=== PATIENT | female | born 1985 | race African-American/Black ===

== ENCOUNTER 2019-09-28 08:00 | Emergency (ER) | payer OTHER ==
[2019-09-28 08:45] LABS: Urine Blood 3+ (NEG); Urine Glucose NEGATIVE (NEG); Urine Protein 1+ (NEG)
[2019-09-28 08:49] LABS: Absolute Lymphocytes (CBC) 2.3 K/uL (0.7-4.9); Basophils % 0.3 % (0-1.3); Hematocrit 38.5 % (36.0-45.0); Lymphocytes % 23.7 % (15.3-44.8); MPV 8.8 fL (7.6-11.3)
[2019-09-28 09:17] LABS: Urine Bacteria 20-50 /HPF (<20); Urine Culture Reflex Order REFLEXED; Urine RBC TNTC /HPF (NONE SEEN)
[2019-09-28 09:20] LABS: BUN Blood Urea Nitrogen 6 mg/dL (7-18); Bicarbonate 26 mmol/L (21-32); Glucose Level 74 mg/dL (74-106); HCG, Quantitative 60990 mIU/mL (1-3); Potassium 3.2 mmol/L (3.5-5.1); Sodium Level 137 mmol/L (136-145)
--- NOTE | 2019-09-28 09:38 | ER ---
Nurse's Notes [facility] Name: Lissette Trujillo Age: 33 yrs Sex: Female : 1985 Arrival Date: 09/28/2019 Time: 08:02 Bed 5 Private MD: Diagnosis: Threatened ;Urinary tract infection, site not specified Presentation: 09/28 08:13 Presenting complaint: Patient states: 10 weeks , had sex last night and jl7 bleeding after, then bleeding with clots this morning, denies pain, reports nausea. Transition of care: patient was not received from another setting of care. Onset of symptoms was September 27, 2019. Risk Assessment: Do you want to hurt yourself or someone else? Patient reports no desire to harm self or others. Initial Sepsis Screen: Does the patient meet any 2 criteria? No. Patient's initial sepsis screen is negative. Does the patient have a suspected source of infection? No. Patient's initial sepsis screen is negative. Care prior to arrival: None. 08:13 Method Of Arrival: Ambulatory jl7 08:13 Acuity: DEVEN 3 jl7 Triage Assessment: 08:15 General: Appears in no apparent distress. uncomfortable, Behavior is calm, cooperative, jl7 appropriate for age. Pain: Denies pain. Neuro: Level of Consciousness is awake, alert, obeys commands, Oriented to person, place, time, situation. Cardiovascular: Patient's skin is warm and dry. Respiratory: Airway is patent Respiratory effort is even, unlabored, Respiratory pattern is regular, symmetrical. GI: Abdomen is round non-distended, Abd is soft and non tender X 4 quads. Reports nausea. : Reports vaginal bleeding that is bright red, with clots, Denies burning with urination. Derm: Skin is pink, warm \T\ dry. Musculoskeletal: No signs and/or symptoms reported regarding the musculoskeletal system. JD EDWARDS: 08:33 5, Living 4, LMP 07/15/2019, Verified, EDC 04/20/2020, Gestational age jl7 from LMP: 10 weeks 5 days Historical: - Allergies: 08:15 Bactrim; jl7 - Home Meds: 08:15 prenantal [Active]; jl7 - PMHx: 08:15 None; jl7 - PSHx: 08:15 None; jl7 - Immunization history:: Adult Immunizations unknown. - Social history:: Smoking status: Patient/guardian denies using tobacco. - Family history:: not pertinent. - Ebola Screening: : No symptoms or risks identified at this time. - Hospitalizations: : No recent hospitalization is reported. Screenin:31 Abuse screen: Denies threats or abuse. Denies injuries from another. Nutritional jl7 screening: No deficits noted. Tuberculosis screening: No symptoms or risk factors identified. Fall Risk IV access (20 points). Total Leroy Fall Scale indicates No Risk (0-24 pts). Assessment: 08:33 Obstetrical Assessment: Patient reports nausea, bright red bleeding with clots post jl7 intercourse . General: See triage assessment. 09:25 Reassessment: Dr. Frazier at bedside discussing results and plan of care. jl7 Vital Signs: 08:15 BP 121 / 78; Pulse 78; Resp 16 S; Pulse Ox 98% on R/A; jl7 Vitals: 09:46 Heart Tones N/A. jl7 ED Course: 08:02 Patient arrived in ED. as 08:06 Kay Bustillo, RN is Primary Nurse. iw 08:07 Frank Frazier MD is Attending Physician. rn 08:13 Jane Coles, DEZ is Primary Nurse. jl7 08:14 Triage completed. jl7 08:15 Arm band placed on right wrist. jl7 08:31 Patient has correct armband on for positive identification. Placed in gown. Bed in low jl7 position. Call light in reach. Side rails up X 1. Pulse ox on. NIBP on. Warm blanket given. 08:31 Initial lab(s) drawn, by me, sent to lab. Urine collected: clean catch specimen, jl7 cloudy, tea colored. Inserted saline lock: 20 gauge in right antecubital area, using aseptic technique. Blood collected. 08:54 Patient taken to ultrasound. via wheelchair. lc3 08:54 Ultrasound completed. Patient tolerated well. Patient moved back from ultrasound. lc3 09:19 US Transvaginal Ob In Process Unspecified. EDMS 09:45 No provider procedures requiring assistance completed. IV discontinued, intact, jl7 bleeding controlled, No redness/swelling at site. Pressure dressing applied. Administered Medications: No medications were administered Point of Care Testing: Urine : 08:33 hCG Reading: Positive; Control Reading: Positive; jl7 Outcome: 09:38 Discharge ordered by . rn 09:45 Discharged to home ambulatory. jl7 09:45 Condition: stable 09:45 Discharge instructions given to patient, family, Instructed on discharge instructions, follow up and referral plans. medication usage, Demonstrated understanding of instructions, follow-up care, medications, Prescriptions given X 1. 09:47 Patient left the ED. jl7 Signatures: Dispatcher [employer] Marybeth Hudson Irene, Frank Ordoñez RN, MD MD rn Cunningham, Laulita lc3 Leal, Jahala, RN RN jl7
--- NOTE | 2019-09-28 09:39 | EDPHYS ---
Physician Documentation [facility] Name: Lissette Trujillo Age: 33 yrs Sex: Female : 1985 Arrival Date: 09/28/2019 Time: 08:02 Bed 5 Private MD: ED Physician Frank Frazier HPI: 09/28 08:12 This 33 yrs old Black Female presents to ER via Unassigned with complaints of Vaginal rn Bleeding, + Preg <12wks. 08:12 The patient presents to the emergency department with vaginal bleeding, that is rn moderate, with clots. The estimated gestational age is 10 weeks. course: care: none, Leakage of Fluid: none appreciated, Ultrasound: the patient has not had an ultrasound. Previous pregnancies: in previous pregnancies patient has had. The patient has not experienced similar symptoms in the past. The patient has not recently seen a physician. presents at approx 10 weeks gestation by LMP, no U/S, with vaginal bleeding, moderate, with some clots, had sex last night and noticed bleeding, stopped, then started again. No abd pain or cramping. No other trauma. No bleeding problems in past. No other complications with previous pregnancies.. [employer]ER: 08:33 5, Living 4, LMP 07/15/2019, Verified, EDC 04/20/2020, Gestational age jl7 from LMP: 10 weeks 5 days Historical: - Allergies: 08:15 Bactrim; jl7 - Home Meds: 08:15 prenantal [Active]; jl7 - PMHx: 08:15 None; jl7 - PSHx: 08:15 None; jl7 - Immunization history:: Adult Immunizations unknown. - Social history:: Smoking status: Patient/guardian denies using tobacco. - Family history:: not pertinent. - Ebola Screening: : No symptoms or risks identified at this time. - Hospitalizations: : No recent hospitalization is reported. ROS: 08:12 Constitutional: Negative for fever, chills, and weight loss, Eyes: Negative for injury, rn pain, redness, and discharge, Neck: Negative for injury, pain, and swelling, Cardiovascular: Negative for chest pain, palpitations, and edema, Respiratory: Negative for shortness of breath, cough, wheezing, and pleuritic chest pain, Abdomen/GI: Negative for abdominal pain, nausea, vomiting, diarrhea, and constipation, Back: Negative for injury and pain, : + vaginal bleeding MS/Extremity: Negative for injury and deformity, Neuro: Negative for headache, weakness, numbness, tingling, and seizure. Exam: 08:12 Constitutional: This is a well developed, well nourished patient who is awake, alert, rn and in no acute distress. Ambulatory to room without difficulty or assistance. Head/Face: Normocephalic, atraumatic. Cardiovascular: Regular rate and rhythm. No pulse deficits. Respiratory: No increased work of breathing, no retractions or nasal flaring. Abdomen/GI: soft, non-tender Skin: Warm, dry with normal turgor. Normal color with no rashes, no lesions, and no evidence of cellulitis. MS/ Extremity: Pulses equal, no cyanosis. Neurovascular intact. Full, normal range of motion. Equal circumference. Neuro: Awake and alert, GCS 15, oriented to person, place, time, and situation. Cranial nerves II-XII grossly intact. Motor strength 5/5 in all extremities. Sensory grossly intact. Cerebellar exam normal. Normal gait. Vital Signs: 08:15 BP 121 / 78; Pulse 78; Resp 16 S; Pulse Ox 98% on R/A; jl7 MDM: 08:07 Patient medically screened. rn 09:34 Differential diagnosis: ectopic , UTI. Data reviewed: vital signs, nurses rn notes, lab test result(s), radiologic studies, ultrasound, and as a result, I will discharge patient. Counseling: I had a detailed discussion with the patient and/or guardian regarding: the historical points, exam findings, and any diagnostic results supporting the discharge/admit diagnosis, lab results, radiology results, the need for outpatient follow up, to return to the emergency department if symptoms worsen or persist or if there are any questions or concerns that arise at home. Special discussion: I discussed with the patient/guardian in detail that at this point there is no indication for admission to the hospital. It is understood, however, that if the symptoms persist or worsen the patient needs to return immediately for re-evaluation. Based on the history and exam findings, there is no indication for further emergent testing or inpatient evaluation. I discussed with the patient/guardian the need to see the OB Gyne specialist for further evaluation of the symptoms. ED course: Rh+, + bacteriuria, + 2 small subchorionic bleeds, recommend pelvic rest, and OB f/u for repeat U/S. . 09:34 ED course: Has OB appt tomorrow. . rn 09/28 08:11 Order name: Quantitative Hcg; Complete Time: 09:26 rn 09/28 08:11 Order name: Abo/rh Typing; Complete Time: 09:26 rn 09/28 08:11 Order name: Basic Metabolic Panel; Complete Time: 09: rn 09/28 08:11 Order name: CBC with Diff; Complete Time: 09: rn 09/28 08:12 Order name: Urine Microscopic Only; Complete Time: 09:26 rn 09/28 08:40 Order name: Urine Dipstick--Ancillary (enter results) ms 09/28 08:08 Order name: US Transvaginal Ob rn 09/28 08:11 Order name: Urine Test (obtain specimen); Complete Time: 08:35 rn 09/28 08:11 Order name: IV Saline Lock; Complete Time: 08:35 rn 09/28 08:11 Order name: Labs collected and sent; Complete Time: 08:35 rn 09/28 08:11 Order name: NPO; Complete Time: 08:35 rn 09/28 08:56 Order name: Urine --Ancillary (enter results) ms 09/28 09:19 Order name: Urine Culture EDAL 09/28 08:11 Order name: Urine Dipstick-Ancillary (obtain specimen); Complete Time: 08:35 rn Administered Medications: No medications were administered Point of Care Testing: Urine : 08:33 hCG Reading: Positive; Control Reading: Positive; jl7 Disposition: 09/28/19 09:38 Discharged to Home. Impression: Threatened , Urinary tract infection, site not specified. - Condition is Stable. - Discharge Instructions: Threatened Miscarriage, Urinary Tract Infection, Adult, Vaginal Bleeding During , First Trimester, Pelvic Rest. - Prescriptions for Macrobid 100 mg Oral Capsule - take 1 capsule by ORAL route every 12 hours for 7 days; 14 capsule. - Work release form, Medication Reconciliation Form, Thank You Letter, Antibiotic Education, Prescription Opioid Use form. - Follow up: Private Physician; When: Tomorrow; Reason: Recheck today's complaints, Re-evaluation by your physician. - Problem is new. - Symptoms have improved. Signatures: Dispatcher [employer] [facility] Frank Frazier MD MD rn Leal, Jahala, RN RN jl7 Corrections: (The following items were deleted from the chart) 08:45 08:40 URINE --ANCILLARY+UC.LAB.BRZ ordered. [facility] 09:47 09:38 09/28/2019 09:38 Discharged to Home. Impression: Threatened ; Urinary jl7 tract infection, site not specified. Condition is Stable. Forms are Work release form, Medication Reconciliation Form, Thank You Letter, Antibiotic Education, Prescription Opioid Use. Follow up: Private Physician; When: Tomorrow; Reason: Recheck today's complaints, Re-evaluation by your physician. Problem is new. Symptoms have improved. rn
[2019-09-28 09:59] VITALS: BP 121/78; O2SAT 98
--- NOTE | 2019-09-28 12:57 | RAD REPORT ---
EXAM DESCRIPTION: US - Transvaginal OB - 09/28/2019 9:18 am CLINICAL HISTORY: vaginal bleeding;Abd cramping, COMPARISON: OBSTETRICAL COMPLETE dated 08/10/2009 FINDINGS: A single gestational sac is seen within the uterus. The shape of the sac is within normal limits for gestational age. Within the sac is a single pole with crown-rump length of 4.8 cm, c orrelating to estimated gestational age of 11 weeks 3 days. Estimated date of delivery is 04/15/2020. Heart rate is 150 BPM. 24 x 8 mm inferiorly located subchorionic bleed. Placenta appears to be developing anteriorly. The maternal adnexa and right ovary are within normal limits. Left ovary is obscured by bowel gas. No rmal Doppler blood flow was demonstrated to the right ovary. IMPRESSION: Single live early intrauterine gestation with estimated gestational age of 11 weeks 3 da ys, SPENCER 04/15/2020. 24 x 8 mm inferiorly located subchorionic bleed.
== END 2019-09-28 09:47 | disposition home or self-care (01) ==
LOC: ER 08:00
DX: O20.0 Threatened abortion (principal); Z3A.10 10 weeks gestation of pregnancy; O23.41 Unspecified infection of urinary tract in pregnancy, first trimester; Z88.1 Allergy status to other antibiotic agents
CPT/HCPCS: 36415; 76817; 80048; 81003; 81015; 81025; 84702; 85025; 86900; 86901; 87086; 87088; 99284

== ENCOUNTER 2023-05-23 14:17 | Emergency (ER) | payer OTHER ==
--- OUTSIDE RECORDS SUMMARY | 2023-05-23 14:21 | XMS REPORT | Continuity of Care Document ---
:1985 Author Organization [facility] t Address [address] [place] [address] Care Team Providers Name Role Phone Farzana Villa Attending Clinician Unavailable Farzana Villa Admitting Clinician Unavailable Payers Payer Name Policy Type Policy Number Effective Date Expiration Date S ource Problems This patient has no known problems. Allergies, Adverse Reactions, Alerts Allergy Allergy Status Severity Reaction(s) Onset Inactive Treating Comm ents Source Name Type Date Date Clinician sulfamet DA Active U [facility]ox[facility] 04-22 [facility] [place] trimetho DA Active U [facility] prim 04-22 [facility] [place] sulfamet DA Active U 2006-11 [facility] hoxazole 12-04 [facility] [place] trimetho DA Active U 2006-11 [facility] prim 12-04 [facility] [place] BACTRIM DA Active U 2006-11 [facility] 12-03 [facility] [place] No Known DA Active U 2006-11 [facility] Contrast - [facility] [place] No Known DA Active U 2006-11 [facility] Food 12-03 [facility] [place] No Known DA Active U 2006-11 [facility] Other 12-03 [facility] [place] Medications This patient has no known medications. Procedures Procedure Date / Time Performed Performing [id number] 2020-04-23 00:00:00 DAVLE [facility] Encounters Start End Encounter Admission Attending Care Care Encounter Source Date/Time Date/Time Type Type Clinicians Facility Department ID 2020-04-23 Inpatient RELL Aviles LD [id number] [facility] 08:52:00 Farzana [facility] 2020-04-22 Inpatient RELL Villa BELKIS [id number] [facility] 20:14:00 [place] 67 [facility] Results Test Description Test Time Test Comments Results Result Comments Source HGB HCT 2020-04-24 07:55:00 Test Item Value Reference Range Interpretation Comme nts HEMOGLOBIN (test code = HGB) 9.5 g/dL 10.7-13.9 L HEMATOCRIT (test code = HCT) 31.4 % 32.1-42.1 L AG HEPATITIS B [id number] 22:49:00 Test Item Value Reference Range Interpretation Comments AG HEPATITIS B SURFACE (test code NONREACTIVE NONREACTIVE = HBSAG) AB HEPATITIS C [id number] 22:49:00 Test Item Value Reference Range Interpretation Comments AB HEPATITIS C (test code = NONREACTIVE NONREACTIVE HCVAB) SIGNAL TO CUTOFF (test code = 0.24 <0.80 N CUTOFF) AB [id number] 22:49:00 Test Item Value Reference Range Interpretation Comments AB TREPONEMA (test code = TREPAB) NONREACTIVE NONREACTIVE AG HEPATITIS B [id number] 22:28:00 Test Item Value Reference Range Interpretation Comments AG HEPATITIS B SURFACE (test code NONREACTIVE NONREACTIVE = HBSAG) AB HEPATITIS C [id number] 22:28:00 Test Item Value Reference Range Interpretation Comments AB HEPATITIS C (test code = HCVAB) NONREACTIVE SIGNAL TO CUTOFF (test code = CUTOFF) <0.80 AB [id number] 22:28:00 Test Item Value Reference Range Interpretation Comments AB TREPONEMA (test code = TREPAB) NONREACTIVE NONREACTIVE Coronavirus 2019 nCoV [id number] 22:22:00 Test Item Value Reference Range Interpretation Comments Coronavirus 2019 Negative Negative RESULTS CA LLED TO ARACELI nCoV Bedside (test M.READ BA CK & CONFIRMED? code = YBY F.LAB.IR 2 COVNONPUIBED) This result do es not rule out co-infectio ns with otherpathogens. * False negative result s may occur if a specimen i simproperly collected, sims sported or handled. False negativeresults may also occur if amplif ication inhibitors arep resent in the specimen or if inadequate leve ls of virusesare pres ent in the specimen. Negat roxy results should beconsid ered in the context of a pa tient's recent exposure s,history and the presenc e of clinical signs and symptomsconsist ent with COVID-19. * Neg ative results should be treated as presumptive andtested with an alterna tive FDA authorized mole cular assayif necessa ry for clinical managm ent, including infectioncontro l. * As with any molecu lar test,mutations within the target regions Kebede ID NOW COVID-[address] could affect primeran d/or probe binding resulti ng in failure to dete ct therescence of the virus.TEST PERF ORMED UNDER AN EMERGENCY US E AUTHORIZATION F ROM [facility] CBC W/AUTO [id number] 21:44:00 Test Item Value Reference Range Interpretation Comments WHITE BLOOD CELL (test code = WBC) 12.2 K/mm3 6.6-12.1 H RED BLOOD CELL (test code = RBC) 4.00 M/mm3 3.45-5.01 N HEMOGLOBIN (test code = HGB) 10.6 g/dL 10.7-13.9 L HEMATOCRIT (test code = HCT) 33.2 % 32.1-42.1 N MEAN CELL VOLUME (test code = MCV) 83 fL 84.1-94.8 L MEAN CELL HGB (test code = MCH) 26.5 pg 27-35 L MEAN CELL HGB CONCETRATION (test 31.9 gm/dL 32.2-34.1 L code = MCHC) RED CELL DISTRIBUTION WIDTH (test 17.2 % 12.4-16.5 H code = RDW) PLATELET COUNT (test code = PLT) 290 K/mm3 133-385 N MEAN PLATELET VOLUME (test code = 11.1 fl 9.1-12.7 N MPV) NEUTROPHIL % (test code = NT%) 82.7 % 56.5-79.4 H LYMPHOCYTE % (test code = LY%) 10.4 % 14.3-34.3 L MONOCYTE % (test code = MO%) 6.3 % 5.1-10.4 N EOSINOPHIL % (test code = EO%) 0.2 % 0.1-3.0 N BASOPHIL % (test code = BA%) 0.1 % 0.1-1.0 N NEUTROPHIL # (test code = NT#) 10.1 K/mm3 LYMPHOCYTE # (test code = LY#) 1.3 K/mm3 MONOCYTE # (test code = MO#) 0.8 K/mm3 EOSINOPHIL # (test code = EO#) 0.02 K/mm3 BASOPHIL # (test code = BA#) 0.0 K/mm3 RBC MORPHOLOGY REQUIRED (test code NORMAL NORMAL = RBCM) PLATELET MORPHOLOGY REQUIRED (test NORMAL NORMAL code = PLTMR) Notes Date/Time Note Provider Source 2020-04-23 14:34:00-00:00 [facility] OB Postpart Progr Note REPORT#:[id number] REPORT STATUS: Signed DATE:04/23/20 TIME: 1434 PATIENT: DANAY KING UNIT #: [id number] ROOM/BED: [address] : [birth year] AGE: 34 SEX: F ATTEND: Karen Villa MD ADM AUTHOR: Farzana Villa MD * ALL edits or amendments must be made on the el ectronic/computer document * Subjective Subjective EGA weeks/days: 40 weeks Status/Day: post Objective Nursing Documentation Review Nursing Data: The data set between the solid lines has been im ported from nursing documentation. Any exceptions have been noted be low under Provider comments. Feeding preference: Provider comments on imported nursing data: [] DAY #1/2 SUBJECTIVE: No complaints. S cant lochia. Tolerating a regular diet. Ambulatory. Voiding spontaneously. Nursing. OBJECTIVE: Vital signs stable. Afebrile Vital Signs: Date Time Temp Pulse Resp B/P B/P Pulse O2 O2 F low FiO2 Mean Ox Delivery Rate 04/23 0743 98.6 71 20 125/77 04/23 0418 98.9 74 18 126/64 04/23 0334 83.0 04/23 0334 75 117/58 04/23 0304 83.0 04/23 0304 79 115/65 04/23 0249 78.0 04/23 0249 71 114/55 Fundus is firm, low and nontender. Perineum/suture sites are healing well and inta ct. ASSESSMENT: Recovering well after . PLAN: Continue care per orders. Planning for discharge home tomorrow. Diagnosis, Assessment Plan Diagnosis, Assessment Plan Problem List/A P: 1. Delivery outcome of single liveborn 2. Term delivered Free text A P: s/p NVD - recovering well Assessment: nml progress Plan: routine care, discharge tomorro w Plan discussed with: patient, nurse Electronically Signed by Farzana Villa MD 04/23/20 at 1435 RPT #:[id number] END OF REPORT 2020-04-23 00:01:00-00:00 [facility] OB Delivery Note REPORT#:[id number] REPORT STATUS: Signed DATE:04/23/20 TIME: 0001 PATIENT: DANAY KING UNIT #: [id number] ROOM/BED: [address] : [birth year] AGE: 34 SEX: F ATTEND: Karen Villa MD ADM AUTHOR: Kenzie Rubio MD * ALL edits or amendments must be made on the [employer] document * OB Delivery Pre-delivery evaluation at delivery: NRP certified la nena cowan Admission EGA (wks/days): 39 weeks EGA at delivery (wks/days): 40 weeks Baby A Information Baby A information Delivery date: 04/23/20 status: live born Wt of baby: not yet available Gender: female 1 minute: 8 5 minutes: 9 Presentation: vertex Vaginal Delivery Vaginal delivery: Labor: augmented Medications/Devices used: oxytocin Vaginal delivery: spontaneous Amniotic fluid: clear Anesthesia type: epidural anesthesia Blood Loss/Details Blood loss at delivery: no more than expected Electronically Signed by Kenzie Rubio MD on at 0138 RPT #:[id number] END OF REPORT 2020-04-22 23:59:00-00:00 [facility] ([facility]) OB Admission / H P REPORT#:[id number] REPORT STATUS: Signed DATE:04/22/20 TIME: 2358 PATIENT: DANAY KING UNIT #: [id number] ROOM/BED: [address] : [birth year] AGE: 34 SEX: F ATTEND: Karen Villa MD ADM AUTHOR: Kenzie Rubio MD * ALL edits or amendments must be made on the [employer] document * OB Admission H P Hx Chief complaint: uterine contractions HPI: @ 39.6 wk with ctx history: : 5 Term: 4 Living children: 4 Current : EDC: 04/23/20 Admission EGA (wks/days): 39 weeks EGA based on: LMP Labs: Blood type: B Rh: positive Rubella: immune Hepatitis B: negative HIV: negative STD: negative Syphilis: currently negative GBS: negative Past medical history: denies PMH Past surgical history: denies PSH Social history: no alcohol use, no tobacco use, no drug use Allergies Coded Allergies: sulfamethoxazole (RASH-UNKNOWN 04/22/20) DRUG INGREDIENT Stefan SULFAMETHOXAZOLE trimethoprim (RASH-UNKNOWN 04/22/20) DRUG INGREDIENT Stefan TRIMETHOPRIM Uncoded Allergies: BACTRIM (05/15/09) Review of Systems All systems rev neg: except as marked Objective General VS: Last Documented: Result Date Time B/P Mean 84.0 04/22 2250 B/P 120/59 04/22 225 Pulse 80 04/22 2250 Temp 98.8 04/22 2031 Resp 17 04/22 2031 Vital Signs Date Temp Pulse Resp B/P B/P Mean Pulse Ox FiO2 04/22 98.8 79-100 17 99-129/59-72 71.0-93.0 Patient Weight Weight (lb): Weight (oz): Weight (kg): [id number] Physical Exam HEENT: normocephalic w/o injury, pupils equal Cardiac: regular rate and rhythm, no clinically sig murmur Lungs: clear to auscultation, no rales, no rhonc hi Abdomen: gravid, no abnormal tenderness, no guar ding Uterine activity: Monitor: toco Pelvic exam: Pelvis clinically adequate: yes, inlet appears appropriate, pubic bone config appropr, no midpelvic contraction Cervical/ exam: Dilatation (cm): 5 Effacement (%): 80 Est wt (gms): 3300 station: - 2 presentation: cephalic Membranes: Membranes: Intact Baby A: Baby A baseline: 140 bpm Baby A variability: moderate 6-25 bpm Baby A accelerations: 15 X 15 Baby A decelerations: none Baby A FHR category: category 1 Diagnosis, Assessment Plan Diagnosis, Assessment Plan Assessment/Impression: spont.active labor>39 wks Plan: admit to inpatient, delivery Electronically Signed by Kenzie Rubio MD on at 0140 RPT #:[id number] END OF REPORT 2020-04-22 23:19:00-00:00 [facility]) Clinical Note REPORT#:[id number] REPORT STATUS: Signed DATE:04/22/20 TIME: 2318 PATIENT: DANAY KING UNIT #: [id number] ROOM/BED: [address] : [birth year] AGE: 34 SEX: F ATTEND: Karen Villa MD ADM AUTHOR: Carie Grullon MD * ALL edits or amendments must be made on the el ectronic/computer document * Clinical Note Note: Called by RN to AROM FHR cat egory 1. VE: AROMed no fluid. FHR category 1 at 2323 RPT #:[id number] END OF REPORT
[2023-05-23 14:43] LABS: Absolute Lymphocytes (CBC) 2.3 K/uL (0.7-4.9); Hematocrit 41.6 % (36.0-45.0); Lymphocytes % 24.8 % (15.3-44.8); MCV 92.4 fL (80-100); MPV 8.3 fL (7.6-11.3)
[2023-05-23 14:46] LABS: Specific Gravity 1.007 (1.005-1.030)
[2023-05-23 14:48] LABS: Specific Gravity 1.007 (1.005-1.030); Urine Bacteria <20 /HPF (<20); Urine Bilirubin NEGATIVE (Negative); Urine Blood Negative (Negative); Urine Clarity Turbid (Clear); Urine Color Colorless (Yellow); Urine Crystals Unidentified Few /HPF (None Seen); Urine Glucose NEGATIVE (Negative); Urine Protein NEGATIVE (Negative); Urine RBC <5 /HPF (None Seen); Urine Urobilinogen Normal (Normal)
[2023-05-23 14:57] LABS: Albumin 3.5 g/dL (3.4-5.0); Bilirubin Total 0.5 mg/dL (0.2-1.0); Potassium 3.7 mEq/L (3.5-5.1); Protein, Total 8.4 g/dL (6.4-8.2)
--- NOTE | 2023-05-23 15:31 | EDPHYS ---
Physician Documentation [facility] Name: Lissette Trujillo Age: 37 yrs Sex: Female : 1985 Arrival Date: 05/23/2023 Time: 14:17 Bed 19 Private MD: ED Physician Arturo Camara HPI: 05/23 15:39 This 37 yrs old Black Female presents to ER via Ambulatory with complaints of Abdominal kb Pain. 15:39 The patient presents with abdominal pain. Onset: The symptoms/episode began/occurred kb last night. The symptoms do not radiate. Associated signs and symptoms: none. The symptoms are described as constant. Modifying factors: The symptoms are alleviated by nothing, the symptoms are aggravated by nothing. Severity of pain: At its worst the pain was moderate in the emergency department the pain has resolved 30 minute(s) prior to arrival. The patient has not experienced similar symptoms in the past. The patient has not recently seen a physician. Historical: - Allergies: 14:24 Bactrim; ld1 - PMHx: 14:24 None; ld1 - PSHx: 14:24 None; ld1 - Immunization history:: Adult Immunizations up to date, Client reports receiving the 2nd dose of the Covid vaccine. - Social history:: Smoking status: Patient denies any tobacco usage or history of. Patient/guardian denies using alcohol. ROS: 15:38 Constitutional: Negative for fever, chills, and weight loss. kb 15:38 All other systems are negative. Exam: 15:38 Constitutional: This is a well developed, well nourished patient who is awake, alert, kb and in no acute distress. Head/Face: Normocephalic, atraumatic. ENT: Moist Mucous membranes Cardiovascular: Regular rate and rhythm with a normal S1 and S2. No gallops, murmurs, or rubs. No pulse deficits. Respiratory: Respirations even and unlabored. No increased work of breathing. Talking in full sentences Abdomen/GI: Soft, non-tender. No distention Skin: Warm, dry with normal turgor. Normal color. MS/ Extremity: Pulses equal, no cyanosis. Neurovascular intact. Full, normal range of motion. Neuro: Awake and alert, GCS 15, oriented to person, place, time, and situation. Moves all extremities. Normal gait. Vital Signs: 14:23 BP 128 / 79; Pulse 75; Resp 18; Temp 98.5(O); Pulse Ox 99% on R/A; Weight 58.97 kg; ld1 Height 5 ft. 5 in. ; Pain 0/10; 15:34 BP 131 / 78; Pulse 81; Resp 18; Pulse Ox 100% on R/A; mb9 14:23 Body Mass Index 21.63 (58.97 kg, 165.1 cm) ld1 14:23 Pain Scale: Adult ld1 MDM: 14:20 Patient medically screened. kb 15:38 Differential diagnosis: appendicitis, cholecystitis, Cholelithiasis, non-specific abd kb pain. Data reviewed: vital signs, nurses notes. 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 Counseling: I had a detailed discussion with the patient and/or guardian regarding: the historical points, exam findings, and any diagnostic results supporting the discharge/admit diagnosis, lab results, the need for outpatient follow up, a family practitioner, to return to the emergency department if symptoms worsen or persist or if there are any questions or concerns that arise at home. Special discussion: Based on the patient's Hx, exam, and Dx evaluation, there is no indication for emergent surgery or inpatient Tx. It is understood by the patient/guardian that if the Sx's persist or worsen they need to return immediately for re-evaluation. 05/23 14:23 Order name: CBC with Diff; Complete Time: 15:13 kb 05/23 14:23 Order name: CMP; Complete Time: 14:57 kb 05/23 14:23 Order name: Lipase; Complete Time: 14:57 kb 05/23 14:23 Order name: Test, Urine; Complete Time: 14:51 kb 05/23 14:23 Order name: Urinalysis w/ reflexes; Complete Time: 14:51 kb 05/23 14:23 Order name: IV Saline Lock; Complete Time: 14:32 kb 05/23 14:23 Order name: Labs collected and sent; Complete Time: 14:32 kb Administered Medications: No medications were administered Disposition: 17:26 Co-signature as Attending Physician, Arturo Camara MD I reviewed the patient's care rt provided by the Advanced Practice Provider and agree with the diagnosis and treatment plan. Disposition Summary: 05/23/23 15:31 Discharge Ordered Location: Home kb Condition: Stable kb Diagnosis - Abdominal pain, Generalized kb Followup: kb - With: Emergency Department - When: As needed - Reason: Worsening of condition Followup: kb - With: Private Physician - When: 2 - 3 days - Reason: Recheck today's complaints, Continuance of care, Re-evaluation by your physician Discharge Instructions: - Discharge Summary Sheet kb - Abdominal Pain, Adult, [id number]-[id number] kb Forms: - Medication Reconciliation Form kb - Thank You Letter kb - Antibiotic Education kb - Prescription Opioid Use kb - [email or web address] kb Signatures: Dispatcher [employer] EDPoppy Bullock FNP-C FNP-Ckb Sims, Lauren, RN RN ld1 Arturo Camara MD MD rt
--- NOTE | 2023-05-23 15:31 | ER ---
Nurse's Notes [facility] Name: Lissette Trujillo Age: 37 yrs Sex: Female : 1985 Arrival Date: 05/23/2023 Time: 14:17 Bed 19 Private MD: Diagnosis: Abdominal pain, Generalized Presentation: 05/23 14:23 Chief complaint: Patient states: Mid abdominal pain since last night. Denies N/V/D. ld1 Coronavirus screen: At this time, the client does not indicate any symptoms associated with coronavirus-19. Ebola Screen: No symptoms or risks identified at this time. Initial Sepsis Screen: Does the patient meet any 2 criteria? No. Patient's initial sepsis screen is negative. Does the patient have a suspected source of infection? No. Patient's initial sepsis screen is negative. Risk Assessment: Do you want to hurt yourself or someone else? Patient reports no desire to harm self or others. Onset of symptoms was May 23, 2023. 14:23 Method Of Arrival: Ambulatory ld1 14:23 Acuity: DEVEN 3 ld1 Triage Assessment: 14:24 General: Appears in no apparent distress. comfortable, Behavior is calm, cooperative, ld1 appropriate for age. Pain: Complains of pain in abdomen Pain does not radiate. Pain currently is 0 out of 10 on a pain scale. at worst was 9 out of 10 on a pain scale. Quality of pain is described as throbbing. EENT: No signs and/or symptoms were reported regarding the EENT system. Neuro: Level of Consciousness is awake, alert, obeys commands, Oriented to person, place, time, situation. Cardiovascular: Capillary refill < 3 seconds Patient's skin is warm and dry. Respiratory: Airway is patent Respiratory effort is even, unlabored. GI: Abdomen is flat, non-distended, Reports lower abdominal pain, upper abdominal pain. : No signs and/or symptoms were reported regarding the genitourinary system. Derm: No signs and/or symptoms reported regarding the dermatologic system. Musculoskeletal: No signs and/or symptoms reported regarding the musculoskeletal system. Historical: - Allergies: 14:24 Bactrim; ld1 - PMHx: 14:24 None; ld1 - PSHx: 14:24 None; ld1 - Immunization history:: Adult Immunizations up to date, Client reports receiving the 2nd dose of the Covid vaccine. - Social history:: Smoking status: Patient denies any tobacco usage or history of. Patient/guardian denies using alcohol. Screenin:34 [facility] ED Fall Risk Assessment (Adult) History of falling in the last 3 months, mb9 including since admission No falls in past 3 months (0 pts). Abuse screen: Denies threats or abuse. Denies injuries from another. Nutritional screening: No deficits noted. Tuberculosis screening: No symptoms or risk factors identified. Assessment: 15:34 Reassessment: No changes from previously documented assessment. Patient and/or family mb9 updated on plan of care and expected duration. Pain level reassessed. Patient is alert, oriented x 3, equal unlabored respirations, skin warm/dry/pink. See triage assessment Patient denies pain at this time. Vital Signs: 14:23 BP 128 / 79; Pulse 75; Resp 18; Temp 98.5(O); Pulse Ox 99% on R/A; Weight 58.97 kg; ld1 Height 5 ft. 5 in. ; Pain 0/10; 15:34 BP 131 / 78; Pulse 81; Resp 18; Pulse Ox 100% on R/A; mb9 14:23 Body Mass Index 21.63 (58.97 kg, 165.1 cm) ld1 14:23 Pain Scale: Adult ld1 ED Course: 14:18 Patient arrived in ED. am2 14:20 [facility] kb 14:20 Arturo Camara MD is Attending Physician. kb 14:24 Triage completed. ld1 14:24 Arm band placed on right wrist. ld1 14:32 Urinalysis w/ reflexes Sent. ld1 14:32 Inserted saline lock: 20 gauge in right antecubital area, using aseptic technique. ld1 Blood collected. 15:08 Placed in gown. Bed in low position. Call light in reach. Side rails up X 1. Client mb9 placed on continuous cardiac and pulse oximetry monitoring. NIBP monitoring applied. 15:34 No provider procedures requiring assistance completed. IV discontinued, intact, mb9 bleeding controlled, No redness/swelling at site. Administered Medications: No medications were administered Medication: 15:08 VIS not applicable for this client. mb9 Outcome: 15:31 Discharge ordered by . kb 15:34 Discharged to home ambulatory. mb9 15:34 Condition: stable 15:34 Discharge instructions given to patient, Instructed on discharge instructions, follow up and referral plans. Demonstrated understanding of instructions, follow-up care. 15:35 Patient left the ED. mb9 Signatures: Poppy Cheng, CLAY PREPARATION SUPERVISOR-C CLAY PREPARATION SUPERVISOR-Ckb Roxana Mack Lauren RN RN ld1 Karis Abraham RN RN mb9
[2023-05-23 16:11] VITALS: TEMP 98.5
[2023-05-23 16:14] VITALS: BP 131/78; O2SAT 100
== END 2023-05-23 15:35 | disposition home or self-care (01) ==
LOC: ER 14:17
DX: R10.84 Generalized abdominal pain (principal); Z88.1 Allergy status to other antibiotic agents
CPT/HCPCS: 36415; 80053; 81001; 81025; 83690; 85025; 99283

== ENCOUNTER 2023-06-25 17:21 | Emergency (ER) | payer OTHER ==
--- OUTSIDE RECORDS SUMMARY | 2023-06-25 17:24 | XMS REPORT | Continuity of Care Document ---
:1985 Author Organization [facility] t Address [address] [place] [address] Care Team Providers Name Role Phone Farzana [...] Known DA Active U 2006-11 [facility] [place] No Known DA Active U 2006-11 [facility] Other 12-03 [facility] [place] Medications This patient has no known medications. Procedures Procedure Date / Time Performed Performing [id number] 2020-04-23 00:00:00 DAVLE [facility] Encounters Start End Encounter Admission Attending Care Care Encounter Source Date/Time Date/Time Type Type Clinicians Facility Department ID 2020-04-23 Inpatient ERLL Aviles LD [id number] [facility] 08:52:00 Farz[facility] 2020-04-22 Inpatient RELL Villa BELKIS [id number] [facility] 20:14:00 [place] 67 [facility] Results Test Description Test Time Test Comments Results Result Comments Source HGB HCT 2020-04-24 07:55:00 Test Item Value Reference Range Interpretation Comme nts HEMOGLOBIN (test code = HGB) 9.5 g/dL 10.7-13.9 L HEMATOCRIT (test code = HCT) 31.4 % 32.1-42.1 L AG HEPATITIS B [id number] 22:49:00 Test Item Value Reference Range Interpretation Comments AG HEPATITIS B SURFACE (test code NONREACTIVE NONREACTIVE = HBSAG) AB HEPATITIS C [id number] 22:49:00 Test Item Value Reference Range Interpretation Comments AB HEPATITIS C (test code = NONREACTIVE NONREACTIVE HCVAB) SIGNAL TO CUTOFF (test code = 0.24 <0.80 N CUTOFF) AB [id number] 22:49:00 Test Item Value Reference Range Interpretation Comments AB TREPONEMA (test code = TREPAB) NONREACTIVE NONREACTIVE AG HEPATITIS B [id number] 22:28:00 Test Item Value Reference Range Interpretation Comments AG HEPATITIS B SURFACE (test code NONREACTIVE NONREACTIVE = HBSAG) AB HEPATITIS C [id number] 22:28:00 Test Item Value Reference Range Interpretation Comments AB HEPATITIS C (test code = HCVAB) NONREACTIVE SIGNAL TO CUTOFF (test code = CUTOFF) <0.80 AB [id number] 22:28:00 Test Item Value Reference Range Interpretation Comments AB TREPONEMA (test code = TREPAB) NONREACTIVE NONREACTIVE Coronavirus 2019 nCoV [id number] 22:22:00 Test Item Value Reference Range Interpretation [...] AN EMERGENCY US E AUTHORIZATION F [facility] CBC W/AUTO [id number] 21:44:00 Test Item Value Reference Range Interpretation [...] Notes Date/Time Note Provider Source 2020-04-23 14:34:00-00:00 [facility] ([facility] OB Postpart Progr Note REPORT#:[id number] REPORT STATUS: Signed DATE:04/23/20 TIME: 1434 PATIENT: DANAY KING UNIT #: [id number] ROOM/BED: [address] : [birth year] AGE: 34 SEX: F [...] Farzana Villa MD 04/23/20 at 1435 RPT #:[id number] END OF REPORT 2020-04-23 00:01:00-00:00 [facility] OB Delivery Note REPORT#:[id number] REPORT STATUS: Signed DATE:04/23/20 TIME: 0001 PATIENT: DANAY KING UNIT #: [id number] ROOM/BED: [address] : [birth year] AGE: 34 SEX: F ATTEND: Karen Villa MD ADM AUTHOR: Kenzie Rubio MD * ALL edits or amendments must be made on the [employer] document * OB Delivery Pre-delivery evaluation at [...] Kenzie Rubio MD on at 0138 RPT #:[id number] END OF REPORT 2020-04-22 23:59:00-00:00 [facility] ([facility]) OB Admission / H P REPORT#:[id number] REPORT STATUS: Signed DATE:04/22/20 TIME: 2358 PATIENT: DANAY KING UNIT #: [id number] ROOM/BED: [address] : [birth year] AGE: 34 SEX: F ATTEND: Karen Villa MD ADM AUTHOR: Kenzie Rubio MD * ALL edits or amendments must be made on the [employer] document * OB Admission H P Hx [...] Weight Weight (lb): Weight (oz): Weight (kg): 65.973361 Physical Exam HEENT: normocephalic w/o injury, pupils [...] Kenzie Rubio MD on at 0140 RPT #:[id number] END OF REPORT 2020-04-22 23:19:00-00:00 [facility]) Clinical Note REPORT#:[id number] REPORT STATUS: Signed DATE:04/22/20 TIME: 2318 PATIENT: DANAY KING UNIT #: [id number] ROOM/BED: [address] : [birth year] AGE: 34 SEX: F ATTEND: Karen Villa MD ADM AUTHOR: Carie Grullon MD * ALL edits or amendments must be made on the el [employer]/computer document * Clinical Note Note: Called by RN to AROM FHR cat egory 1. VE: AROMed no fluid. FHR category 1 at 2323 RPT #:[id number] END OF REPORT
[2023-06-25 18:23] LABS: Specific Gravity > 1.030 (1.005-1.030)
[2023-06-25 18:27] LABS: Urine Bacteria <20 /HPF (<20); Urine Mucus 4+ /HPF (None Seen)
--- NOTE | 2023-06-25 19:03 | RAD REPORT ---
[facility] - [facility] 6:40 pm CLINICAL HISTORY: left flank pain COMPARISON: No comparisons TECHNIQUE: CT of the abdomen and pelvis was performed. All CT scans are performed using dose optimization technique as appropriate and may include automated exposure control or mA/KV adjustment according to patient size. FINDINGS: Lower chest: No acute abnormality. Liver: No acute abnormality or suspicious lesions. Biliary: No biliary ductal dilatation. Stomach: No significant focal abnormality. Duodenum: No significant focal abnormality. Pancreas: No significant abnormality. Spleen: No significant abnormality. Adrenal: No suspicious lesions. Kidney/ureter: No hydronephrosis. No renal calculi. Retroperitoneum: No retroperitoneal adenopathy. Vascular: No aneurysm. Bowel: Normal appendix . Diverticulosis without diverticulitis. Peritoneum: No ascites or free air. Small fat containing umbilical hernia . Bladder: Grossly unremarkable. Reproductive: No adnexal masses. Bones: No acute fracture. Other: n/a IMPRESSION: No acute intra-abdominal or pelvic finding. No urinary tract calculi. Normal appendix.
--- NOTE | 2023-06-25 20:36 | EDPHYS ---
Physician Documentation [facility] Name: Lissette Trujillo Age: 37 yrs Sex: Female : 1985 Arrival Date: 06/25/2023 Time: 17:21 Bed IW1 Private MD: ED Physician Royal Emanuel HPI: 06/25 17:32 This 37 yrs old Black Female presents to ER via Ambulatory with complaints of Low Back cp Pain. 17:32 The patient complains of pain in the left flank. The pain does not radiate. Onset: The cp symptoms/episode began/occurred 3-4 days ago. Associated signs and symptoms: Pertinent negatives: diarrhea, dysuria, fever, urinary frequency, hematuria, pain radiating to the lower extremities, vomiting. Severity of pain: in the emergency department the pain is unchanged despite home interventions. 17:33 The patient has experienced a previous episode, years ago when diagnosed and treated cp for uti. Historical: - Allergies: 17:28 Bactrim; cm10 - Home Meds: 17:28 None [Active]; cm10 - PMHx: 17:28 None; cm10 - PSHx: 17:28 None; cm10 - Immunization history:: Adult Immunizations up to date. - Social history:: Smoking status: Patient denies any tobacco usage or history of. ROS: 17:35 Constitutional: Negative for body aches, chills, fever, poor PO intake. cp 17:35 Cardiovascular: Negative for chest pain, palpitations. cp 17:35 Respiratory: Negative for cough, shortness of breath, wheezing. 17:35 Eyes: Negative for injury, pain, redness, and discharge. cp 17:35 ENT: Negative for drainage from ear(s), ear pain, sore throat, difficulty swallowing, difficulty handling secretions. 17:35 Neck: Negative for pain with movement, pain at rest, stiffness. 17:35 Abdomen/GI: Negative for vomiting, diarrhea, constipation, anorexia. 17:35 Back: Positive for flank pain, on the left. 17:35 : Positive for urinary symptoms, Negative for vaginal bleeding, vaginal discharge. 17:35 Neuro: Negative for dizziness, headache, weakness. 17:35 All other systems are negative. Exam: 17:40 Constitutional: The patient appears in no acute distress, alert, awake, non-toxic, well cp developed, well nourished. 17:40 Head/Face: Normocephalic, atraumatic. cp 17:40 Eyes: Periorbital structures: appear normal, Conjunctiva: normal, no exudate, no injection, Sclera: no appreciated abnormality, Lids and lashes: appear normal, bilaterally. 17:40 ENT: External ear(s): are unremarkable, Nose: is normal, Mouth: Lips: moist, Oral mucosa: pink and intact, moist, Posterior pharynx: is normal, airway is patent, no erythema, no exudate. 17:40 Neck: ROM/movement: is normal, is supple, without pain, no range of motions limitations. 17:40 Chest/axilla: Inspection: normal. 17:40 Cardiovascular: Rate: normal, Rhythm: regular. 17:40 Respiratory: the patient does not display signs of respiratory distress, Respirations: normal, no use of accessory muscles, no retractions, labored breathing, is not present, Breath sounds: are clear throughout, no decreased breath sounds, no stridor, no wheezing. 17:40 Abdomen/GI: Inspection: abdomen appears normal, Palpation: soft, in all quadrants, nontender, in all quadrants. 17:40 Back: CVA tenderness, is noted on the left. 17:40 Neuro: Orientation: to person, place \T\ time. Mentation: is normal, Motor: moves all fours, strength is normal, Gait: is steady, at a normal pace, without difficulty. Vital Signs: 17:27 BP 131 / 85; Pulse 66; Resp 16; Temp 98.6; Pulse Ox 100% on R/A; Weight 58.97 kg; cm10 Height 5 ft. 0 in. ; Pain 9/10; 17:27 Body Mass Index 25.39 (58.97 kg, 152.4 cm) cm10 17:27 Pain Scale: Adult cm10 MDM: 17:31 Patient medically screened. cp 18:00 Differential diagnosis: nephrolithiasis, pyelonephritis, UTI, diverticulitis, cp cholelithiasis. 20:35 Data reviewed: vital signs, nurses notes, lab test result(s), radiologic studies, CT cp scan. 20:35 Counseling: I had a detailed discussion with the patient and/or guardian regarding: the cp historical points, exam findings, and any diagnostic results supporting the discharge/admit diagnosis, lab results, radiology results, to return to the emergency department if symptoms worsen or persist or if there are any questions or concerns that arise at home. 06/25 17:32 Order name: Urine Microscopic Only; Complete Time: 19:00 06/25 19:01 Interpretation: Normal except: UWBC 10-20; URBC 5-10; MUCUS 4+. 06/25 17:32 Order name: PREGU; Complete Time: 19:00 06/25 18:34 Order name: Urine Culture EDWV 06/25 17:32 Order name: CT Stone Protocol; Complete Time: 19:55 06/25 19:55 Interpretation: Report reviewed. cp Administered Medications: No medications were administered Disposition: 20:46 I reviewed the patient's care provided by the Advanced Practice Provider and agree with tk the diagnosis and treatment plan. Disposition Summary: 06/25/23 20:35 Discharge Ordered Location: Home cp Problem: new cp Symptoms: have improved cp Condition: Stable cp Diagnosis - UTI/ Urinary tract infection, site not specified cp Followup: cp - With: Private Physician - When: 2 - 3 days - Reason: Recheck today's complaints Discharge Instructions: - Discharge Summary Sheet cp - Urinary Tract Infection, Adult cp Forms: - Medication Reconciliation Form cp - Thank You Letter cp - Antibiotic Education cp - Prescription Opioid Use cp - Patient Portal Instructions cp Prescriptions: - Ibuprofen 600 mg Oral Tablet - take 1 tablet by ORAL route every 8 hours As needed take with food; 30 tablet; cp Refills: 0, Product Selection Permitted - Macrobid 100 mg Oral Capsule - take 1 capsule by ORAL route every 12 hours for 7 days; 14 capsule; Refills: 0, cp Product Selection Permitted Signatures: Dispatcher [employer] EDWV Keron Cruz PA PA cp Royal Emanuel MD MD [id number] Tona Orellana RN RN cm10
--- NOTE | 2023-06-25 20:36 | ER ---
Nurse's Notes [facility] Name: Lissette Trujillo Age: 37 yrs Sex: Female : 1985 Arrival Date: 06/25/2023 Time: 17:21 Bed IW1 Private MD: Diagnosis: UTI/ Urinary tract infection, site not specified Presentation: 06/25 17:27 Chief complaint: Patient states: Right sided flank pain X4 days. Pt denies any fever, cm10 UTI symptoms or any GI symptoms. Coronavirus screen: Vaccine status: Patient reports receiving the 2nd dose of the covid vaccine. Ebola Screen: Patient denies travel to an Ebola-affected area in the 21 days before illness onset. No symptoms or risks identified at this time. Initial Sepsis Screen: Does the patient meet any 2 criteria? No. Patient's initial sepsis screen is negative. Does the patient have a suspected source of infection? No. Patient's initial sepsis screen is negative. Risk Assessment: Do you want to hurt yourself or someone else? Patient reports no desire to harm self or others. Onset of symptoms was June 21, 2023. 17:27 Method Of Arrival: Ambulatory cm10 17:27 Acuity: DEVEN 3 cm10 Triage Assessment: 17:29 General: Appears in no apparent distress. comfortable, Behavior is calm, cooperative. cm10 Pain: Complains of pain in right mid back Pain does not radiate. Pain currently is 9 out of 10 on a pain scale. Quality of pain is described as stabbing. Neuro: No deficits noted. Level of Consciousness is awake, alert, Oriented to person, place, time, situation. Respiratory: No deficits noted. Airway is patent Respiratory effort is even, unlabored, Respiratory pattern is regular, symmetrical. : No deficits noted. No signs and/or symptoms were reported regarding the genitourinary system. Historical: - Allergies: 17:28 Bactrim; cm10 - Home Meds: 17:28 None [Active]; cm10 - PMHx: 17:28 None; cm10 - PSHx: 17:28 None; cm10 - Immunization history:: Adult Immunizations up to date. - Social history:: Smoking status: Patient denies any tobacco usage or history of. Screenin:42 [facility] ED Fall Risk Assessment (Adult) Score/Fall Risk Level 0 - 2 = Low Risk. Abuse as6 screen: Denies threats or abuse. Denies injuries from another. Nutritional screening: No deficits noted. Tuberculosis screening: No symptoms or risk factors identified. Vital Signs: 17:27 BP 131 / 85; Pulse 66; Resp 16; Temp 98.6; Pulse Ox 100% on R/A; Weight 58.97 kg; cm10 Height 5 ft. 0 in. ; Pain 9/10; 17:27 Body Mass Index 25.39 (58.97 kg, 152.4 cm) cm10 17:27 Pain Scale: Adult cm10 ED Course: 17:23 Patient arrived in ED. mg5 17:24 Keron Cruz PA is PHCP. cp 17:24 Arturo Camara MD is Attending Physician. cp 17:28 Triage completed. cm10 17:30 Arm band placed on Patient placed in waiting room. cm10 18:05 PREGU Sent. cm10 18:05 Urine Microscopic Only Sent. cm10 18:10 Royal Emanuel MD is Attending Physician. cp 18:42 CT Stone Protocol In Process Unspecified. EDMS 20:42 Bed in low position. Call light in reach. Provided Education on: antibiotic teaching . as6 20:42 No provider procedures requiring assistance completed. Patient did not have IV access as6 during this emergency room visit. Administered Medications: No medications were administered Medication: 20:42 VIS not applicable for this client. as6 Outcome: 20:35 Discharge ordered by MD. cp 20:43 Discharged to home ambulatory. as6 20:43 Condition: stable 20:43 Discharge instructions given to patient, Instructed on discharge instructions, follow up and referral plans. medication usage, Demonstrated understanding of instructions, follow-up care, medications, Prescriptions given X 2. 20:43 Patient left the ED. as6 Signatures: Dispatcher [employer] EDCT Keron Cruz PA PA cp Slawson, Ashby, RN RN as6 Tona Orellana RN RN Natividad Pena mg5
[2023-06-25 21:12] VITALS: BP 131/85; TEMP 98.6; O2SAT 100
== END 2023-06-25 20:43 | disposition home or self-care (01) ==
LOC: ER 17:21
DX: N39.0 Urinary tract infection, site not specified (principal); Z88.1 Allergy status to other antibiotic agents
CPT/HCPCS: 74176; 76377; 81015; 81025; 87086; 87088; 99283

== ENCOUNTER 2023-10-30 21:41 | Emergency (ER) | payer OTHER ==
--- OUTSIDE RECORDS SUMMARY | 2023-10-30 21:44 | XMS REPORT | Continuity of Care Document ---
:1985 Author Organization [facility] t Address [address] [place] [address] Care Team Providers Name Role Phone Farzana Villa Attending Clinician Unavailable Farzana Villa Admitting Clinician Unavailable Payers Payer Name Policy Type Policy Number Effective Date Expiration Date S ource Problems This patient has no known problems. Allergies, Adverse Reactions, Alerts Allergy Allergy Status Severity Reaction(s) Onset Inactive Treating Comm ents Source Name Type Date Date Clinician sulfamet DA Active U RASH-UNKNOWN 0 [facility] [place] trimetho DA Active U RASH-UNKNOWN 0 [facility] prim [facility] [place] sulfamet DA Active U 2006-11 [facility] hoxazole [facility] [place] trimetho DA Active [facility] 2006[facility] prim 12-04 [facility] [place] BACTRIM DA Active U 2006-11 [facility] [place] [...] Procedure Date / Time Performed Performing Clinician Sour e [id number] 2020-04-23 00:00:00 DAVELVIRA [facility] Encounters Start End Encounter Admission Attending Care Care Encounter Source Date/Time Date/Time Type Type Clinicians Facility Department ID 2020-04-23 Inpatient RELL Aviles LD [id number] [facility] 08:52:00 Farzana [facility] 2020-04-22 Inpatient RELL Villa BELKIS [id number] [facility] 20:14:00 [place] [facility] Results Test Description Test Time Test Comments Results Result Comments Source HGB HCT 2020-04-24 07:55:00 Test Item Value Reference Range Interpretation Comme nts HEMOGLOBIN (test code = HGB) 9.5 g/dL 10.7-13.9 L HEMATOCRIT (test code = HCT) 31.4 % 32.1-42.1 L AG HEPATITIS B [id number] 22:49:00 Test Item Value Reference Range Interpretation Comments AG HEPATITIS B SURFACE (test code NONREACTIVE NONREACTIVE = HBSAG) AB HEPATITIS C [id number] 22:49:00 Test Item Value Reference Range Interpretation Comments AB HEPATITIS C (test code = NONREACTIVE NONREACTIVE HCVAB) SIGNAL TO CUTOFF (test code = 0.24 <0.80 N CUTOFF) AB [id number] 22:49:00 Test Item Value Reference Range Interpretation Comments AB TREPONEMA (test code = TREPAB) NONREACTIVE NONREACTIVE AG HEPATITIS B [id number] 22:28:00 Test Item Value Reference Range Interpretation Comments AG HEPATITIS B SURFACE (test code NONREACTIVE NONREACTIVE = HBSAG) AB HEPATITIS C [id number] 22:28:00 Test Item Value Reference Range Interpretation Comments AB HEPATITIS C (test code = HCVAB) NONREACTIVE SIGNAL TO CUTOFF (test code = CUTOFF) <0.80 AB [id number] 22:28:00 Test Item Value Reference Range Interpretation Comments AB TREPONEMA (test code = TREPAB) NONREACTIVE NONREACTIVE Coronavirus 2019 nCoV [id number] 22:22:00 Test Item Value Reference Range Interpretation Comments Coronavirus 2019 Negative Negative RESULTS CA LLED TO ARACELI nCoV Bedside (test M.READ BA CK & CONFIRMED? code = YBY F.LAB.IR 2222 COVNONPUIBED) This result do es not rule [...] AN EMERGENCY US E AUTHORIZATION F ROM FDA CBC W/AUTO [id number] 21:44:00 Test Item Value Reference Range Interpretation [...] PLTMR) Notes Date/Time Note Provider Source 2020-04-23 14:34:00 [id number]:34:[address] [facility] [facility]OB Postpart Progr NoteREPORT#:[id number] REPORT STATUS: SignedDATE:04/23/20 TIME: 1434 PATIENT: DANAY KING UNIT #: [id number]#: [id number] [address] [birth year] AGE : 34 SEX: F ATTEND: Farzana Villa MDADM AUTHOR: Farzana Villa MD * ALL edits or amendments must be made on the electronic/computer document * Subjective SubjectiveEGA weeks/days: 40 weeksStatus/Day: post Objective Nursing Documentation ReviewNursing Data:The data set between the devin d lines has been imported from nursing documentation. Any exceptions have been noted below under Provider comments. _ Feeding preference: _ Provider comment s on imported nursing data: [] P O STPARTUM DAY #1/2 SUBJECTIVE: No complaints. Scant lochia. Tolerating a regular diet. Ambulatory.Voiding spontaneously. Nursing. OBJECTIVE: Vital signs stable. AfebrileVital Signs: Date Time Temp Pulse Resp B/P B/P Pulse O2 O2 Flow FiO2 Mean Ox Delivery Rate 04/23 0743 98.6 71 20 125/77 04/23 0418 98.9 74 18 126/64 04/23 0334 83.0 04/23 0334 75 117/58 04/23 0304 83.0 04/23 0304 79 115/65 04/23 0249 78.0 04/23 0249 71 114/55 Fundus is firm, low and nontender . Perineum/suture sites are healing well and intact. ASSESSMENT: Recovering well after . PLAN: Continue care per orders. Planning for discharge home tomorrow. Diagnosis, Assessment Plan Diagnosis, Assessment PlanProble m List/A P: 1. Delivery outcome of single liveborn infant 2. Term delivered Free text A P:s/p NVD - recovering wellAssessment: nml progressPlan: routine care , discharge tomorrowPlan discussed with: patient, nurse at 1435 RPT #:[id number] OF REPORT PRProgress [id number]:34:00F.[id number] nat able for patient bjeaNFYCXJQPRFXPCX3723-02-15L45:35:48 2020-04-23 00:01:00 [id number]:01:00 [facility] ([facility])OB Delivery NoteREPORT#:[id number] REPORT STATUS: SignedDATE:04/23/20 TIME: 2358 PATIENT: DANAY KING UNIT #: [id number]#: [id number] ROOM/BED: Ab[address]ije[address]-ADOB: [birth year] AGE: 34 SEX: F ATTEND: Farzana Villa MDADM AUTHOR: Kenzie Rubio MD * ALL edits o r amendments must be made on the electronic/computer document * OB Delivery Pre-deliveryNewborn evaluation at delivery: NRP certified personnelAdmission EGA (wks/days): 39 weeksEGA at delivery (wks/days): 40 weeks Baby A InformationBaby A information Delivery date: 04/23/20 status: live born Wt of baby: not yet available Gender: female 1 minute: 8 5 minutes: 9 Presentation: vertex Vaginal DeliveryVaginal delivery: Labor: augmented Medications/Devices used: oxytocin Vaginal delivery: spontaneous Amniotic fluid: clear Anesthesia type: epidural anesthesia Blood Loss/DetailsBlood loss at delivery: no more than expected at 0138 RPT #:[id number] OF REPORT OBObstetric [id number]:01:00F.[id number] l able for patient [id number]:38:52 2020-04-22 23:59:00 [id number]:59:00 [facility]OB Admission / H PREPORT#:[id number] REPORT STATUS: SignedDATE:04/22/20 TIME: 2358 PATIENT: DANAY KING UNIT #: [id number]#: [id number] ROOM/BED: Abhijeet-ADOB: [birth year] AGE: 34 SEX: F ATTEND: Farzana Villa MDADM AUTHOR: Kenzie Rubio MD * ALL edits o r amendments must be made on the electronic/computer document * OB Admission H P HxChief complaint: uterine contractionsHPI: @ 39.6 wk with ctxPregnancy history: : 5 Term: 4 Living children: 4Current : EDC: 04/23/20 Admission EGA (wks/days): 39 weeks EGA based on: LMPLabs: Blood type: B Rh: positive Rubella: immune Hepatitis B: negative HIV: negative STD: negative Syphilis: currently negative GBS: negativePast medical history: denies PMHPast surgical history: denies PSHSocial history: no alcohol use, no tobacco use, no drug useAllergiesCoded Allergies:sulfamethoxazole (RASH-UNKNOWN 04/22/20) DRUG INGREDIENT Stefan SULFAMETHOXAZOLEtrimethoprim (RASH-UNKNOWN 04/22/20) DRUG INGREDIENT Stefan TRIMETHOPRIMUncoded Allergies:BACTRIM (05/15/09) Review of SystemsAll systems rev neg: except as marked Objective GeneralVS:Last Documented: Result Date Time B/P Mean 84.0 04/22 2250 B/P 120/59 04/22 2250 Pulse 80 04/22 2250 Temp 98.8 04/22 2031 Resp 17 04/22 2031 Vital Signs Date Temp Pulse Resp B/P B/P Mean Pulse Ox FiO2 04/22 98.8 79-100 17 99-129/59-72 71.0-93.0 Patient Weight Weight (lb): Weight (oz): Weight (kg): 65.296225 Physical ExamHEENT: normocephalic w/o injury, pupils equalCardiac: regular rate and rhythm, no clinically sig murmurLungs: clear to auscultation, no rales, no rhonchiAbdomen: gravid, no abnormal tenderness, no guardingUterine activity: Monitor: tocoPelvic exam: Pelvis clinically adequate: yes, inlet appears appropriate, pubic bone configappropr, n o midpelvic contractionCervical/ exam: Dilatation (cm): 5 Effacement (%): 80 Est wt (gms): 3300 station: - 2 presentation: cephalicMembranes: Membranes: IntactBaby A: Baby A baseline: 140 bpm Baby A variability: moderate 6-25 bpm Baby A accelerations: 15 X 15 Baby A decelerations: non e Baby A FHR category: category 1 Diagnosis, Assessment Plan Diagnosis, Assessment PlanAssessment/Impression: spont.active labor>39 wksPlan: admit to inpatient, delivery at 0140 RPT #:[id number] OF REPORT HPHistory and physical [id number]:59:00F.[id number] 2 AVAvailable for patient [id number]:40:52 2020-04-22 23:19:00 [id number]:19:[address] [facility] [facility])Clinical NoteREPORT#:[id number] REPORT STATUS: SignedDATE:04/22/20 TIME: 2318 PATIENT: DANAY KING UNIT #: [id number]#: [id number] [facility] AGE: 34 SEX: F ATTEND: Farzana Villa MDADM AUTHOR: Carie Grullon MD * ALL edit s or amendments must be made on the electronic/computer document * Clinical NoteNote:Called by RN to AROM FHR category 1. VE:/- AROMed no fluid. FHR category 1 at 2323 RPT #:[id number] OF REPORT CLClinical [id number]:19:00F.[id number] l able for patient [id number]:24:13
[2023-10-30 22:24] LABS: Absolute Lymphocytes (CBC) 2.4 K/uL (0.7-4.9); Hematocrit 39.4 % (36.0-45.0); Lymphocytes % 40.3 % (15.3-44.8); MCV 93.1 fL (80-100); MPV 8.2 fL (7.6-11.3); Platelets 250 thou/uL (152-406); RBC Red Blood Cell Count 4.23 M/uL (3.86-4.86)
[2023-10-30 22:28] LABS: Potassium 3.6 mEq/L (3.5-5.1); Specific Gravity 1.025 (1.005-1.030)
[2023-10-30 22:29] LABS: Specific Gravity 1.025 (1.005-1.030); Urine Bacteria None Seen /HPF (<20); Urine Bilirubin NEGATIVE (Negative); Urine Blood Negative (Negative); Urine Clarity Turbid (Clear); Urine Color Light-Yellow (Yellow); Urine Glucose NEGATIVE (Negative); Urine Mucus Slight /HPF (None Seen); Urine Protein NEGATIVE (Negative); Urine RBC <5 /HPF (None Seen); Urine Urobilinogen 1+ (Normal)
--- NOTE | 2023-10-30 23:58 | EDPHYS ---
Physician Documentation [facility] Name: Lissette Trujillo Age: 38 yrs Sex: Female : 1985 Arrival Date: 10/30/2023 Time: 21:41 Bed 19 Private MD: ED Physician Lionel Suarez HPI: 10/30 23:44 This 38 yrs old Black Female presents to ER via Ambulatory with complaints of Back Pain.kb 23:44 Patient is a 38-year-old female with no medical history who presents for left flank kb pain that has been intermittent since her last visit months ago. States she was diagnosed with a UTI and put on antibiotics during that visit and she believes they were not strong enough because she is still having the pain intermittently. States today the pain was constant. Denies fever, urinary symptoms, nausea, vomiting, diarrhea. 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 - Social history:: Smoking status: Patient denies any tobacco usage or history of. ROS: 23:44 Constitutional: Negative for fever, chills, and weight loss, kb 23:44 : Positive for flank pain, 23:44 All other systems are negative, Exam: 23:44 Constitutional: This is a well developed, well nourished patient who is awake, alert, kb and in no acute distress. Head/Face: Normocephalic, atraumatic. ENT: Moist Mucous membranes Cardiovascular: Regular rate Respiratory: Respirations even and unlabored. No increased work of breathing. Talking in full sentences Abdomen/GI: Soft, non-tender. No distention Skin: Warm, dry with normal turgor. Normal color. MS/ Extremity: Pulses equal, no cyanosis. Neurovascular intact. Full, normal range of motion. Neuro: Awake and alert, GCS 15, oriented to person, place, time, and situation. Moves all extremities. Normal gait. 23:44 Back: CVA tenderness, that is mild, is noted on the left, Vital Signs: 21:50 BP 115 / 75; Pulse 79; Resp 16; Temp 97.3; Pulse Ox 100% ; Weight 58.97 kg; Height 5 cm10 ft. 0 in. ; Pain 09/04; 10/31 00:36 BP 122 / 81; Pulse 77; Resp 15; Pulse Ox 99% on R/A; nw1 10/30 21:50 Body Mass Index 25.39 (58.97 kg, 152.4 cm) cm10 10/30 21:50 Pain Scale: Adult cm10 Jc Coma Score: 10/30 23:35 Eye Response: spontaneous(4). Motor Response: obeys commands(6). Verbal Response: nw1 oriented(5). Total: 15. MDM: 21:46 Patient medically screened. kb 23:44 Differential diagnosis: nephrolithiasis, pyelonephritis, UTI. Data reviewed: vital kb signs, nurses notes. 23:54 Counseling: I had a detailed discussion with the patient and/or guardian regarding the historical points, exam findings, and any diagnostic results supporting the discharge/admit diagnosis, lab results, radiology results, the need for outpatient follow up, a family practitioner, to return to the emergency department if symptoms worsen or persist or if there are any questions or concerns that arise at home. 23:54 I considered the following discharge prescriptions or medication management in the emergency department I discussed and recommended Over The Counter medications, Antibiotics: At this time antibiotics are not recommended. 10/31 01:08 ED course: . sp4 10/30 21:49 Order name: CBC with Diff; Complete Time: 22:36 kb 10/30 21:49 Order name: Basic Metabolic Panel; Complete Time: 22:29 kb 10/30 21:49 Order name: Test, Urine; Complete Time: 22:30 kb 10/30 21:49 Order name: Urinalysis w/ reflexes; Complete Time: 22:29 kb 10/30 22:30 Order name: CT Abd/Pelvis - IV Contrast Only kb 10/30 21:49 Order name: IV Start; Complete Time: 22:09 kb Administered Medications: No medications were administered Disposition: :08 Co-signature as Attending Physician, Lionel Suarez MD I agree with the assessment sp4 and plan of care. I reviewed the patient's care provided by the Advanced Practice Provider and agree with the diagnosis and treatment plan. Disposition Summary: 10/30/23 23:57 Discharge Ordered Notes: Location: Home Condition: Stable kb Diagnosis - Left Flank Pain kb Followup: kb - With: Emergency Department - When: As needed - Reason: Worsening of condition Followup: kb - With: Private Physician - When: 2 - 3 days - Reason: Recheck today's complaints, Continuance of care, Re-evaluation by your physician Discharge Instructions: - Discharge Summary Sheet kb - Flank Pain, Adult, Bbiz-tg-Qhdp kb - Gastroparesis kb Forms: - Medication Reconciliation Form kb - Thank You Letter kb - Antibiotic Education kb - Prescription Opioid Use kb - Patient Portal Instructions kb - Leadership Thank You Letter kb Signatures: Dispatcher [employer] EDMS Poppy Cheng, CLINICAL ASSOC-C CLINICAL ASSOC-Lionel Elise MD MD sp4 Tona Orellana RN RN cm10 Corrections: (The following items were deleted from the chart) 10/30 23:54 23:54 I considered the following discharge prescriptions or medication management in the emergency department I discussed and recommended Over The Counter medications, Antibiotics: At this time antibiotics are not recommended, kb
--- NOTE | 2023-10-30 23:58 | ER ---
Nurse's Notes [facility] Name: Lissette Trujillo Age: 38 yrs Sex: Female : 1985 Arrival Date: 10/30/2023 Time: 21:41 Bed 19 Private MD: Diagnosis: Left Flank Pain Presentation: 10/30 21:50 Chief complaint: Patient states: Left sided flank pain that has been intermittent for cm10 the last 2 months. Pt states that the pain got worse yesterday. Pt denies any urinary symptoms. Coronavirus screen: Vaccine status: Patient reports receiving the 2nd dose of the covid vaccine. Client denies travel out of the [place] in the last 14 days. Ebola Screen: Patient denies travel to an Ebola-affected area in the 21 days before illness onset. No symptoms or risks identified at this time. Initial Sepsis Screen: Does the patient meet any 2 criteria? No. Patient's initial sepsis screen is negative. Does the patient have a suspected source of infection? No. Patient's initial sepsis screen is negative. Risk Assessment: Do you want to hurt yourself or someone else? Patient reports no desire to harm self or others. Onset of symptoms was October 30, 2023. 21:50 Method Of Arrival: Ambulatory cm10 21:50 Acuity: DEVEN 3 cm10 Triage Assessment: 21:56 General: Appears in no apparent distress. comfortable, Behavior is calm, cooperative. cm10 Pain: Complains of pain in left flank Pain radiates to left lower quadrant. EENT: No deficits noted. No signs and/or symptoms were reported regarding the EENT system. Neuro: No deficits noted. Hirsch Agitation-Sedation Scale (RASS): 0 - Alert and Calm Level of Consciousness is awake, alert, obeys commands, Oriented to person, place, time, situation. Cardiovascular: No deficits noted. Patient's skin is warm and dry. Respiratory: No deficits noted. Airway is patent Respiratory effort is even, unlabored, Respiratory pattern is regular, symmetrical. GI: No deficits noted. No signs and/or symptoms were reported involving the gastrointestinal system. : No deficits noted. Reports pain in left flank(s). Derm: No deficits noted. No signs and/or symptoms reported regarding the dermatologic system. Skin is intact, Skin is pink, warm \T\ dry. Musculoskeletal: No deficits noted. Range of motion: intact in all extremities. 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 - Social history:: Smoking status: Patient denies any tobacco usage or history of. Screenin:57 [facility] ED Fall Risk Assessment (Adult) History of falling in the last 3 months, cm10 including since admission No falls in past 3 months (0 pts) Confusion or Disorientation No (0 pts) Intoxicated or Sedated No (0 pts) Impaired Gait No (0 pts) Mobility Assist Device Used No (0 pt) Altered Elimination No (0 pt) Score/Fall Risk Level 0 - 2 = Low Risk Oriented to surroundings, Maintained a safe environment, Hourly rounding (assess needs \T\ fall precautionary measures) done. Abuse screen: Denies threats or abuse. Denies injuries from another. Nutritional screening: No deficits noted. Tuberculosis screening: No symptoms or risk factors identified. Assessment: 23:35 Reassessment: Introductions made. Pt placed in a gown and on the monitor. Assessment nw1 completed. Per patient, history of kidney infections. Pt states that she has had this pain x 2 weeks intermittently. Pt states pain got worse yesterday being consistent to today. Pt noted alert and oriented x4, watching television and looking at phone. 0 s/s of acute distress noted at this time. Pt states 9/10 left flank pain, non radiating. General: Appears in no apparent distress. Behavior is calm, cooperative, appropriate for age. Neuro: Level of Consciousness is awake, alert, obeys commands, Oriented to person, place, time, situation, Appropriate for age. Cardiovascular: No deficits noted. Respiratory: No deficits noted. GI: No deficits noted. : Urine is clear, Reports left flank pain. Derm: No deficits noted. No signs and/or symptoms reported regarding the dermatologic system. Musculoskeletal: No deficits noted. No signs and/or symptoms reported regarding the musculoskeletal system. Vital Signs: 21:50 BP 115 / 75; Pulse 79; Resp 16; Temp 97.3; Pulse Ox 100% ; Weight 58.97 kg; Height 5 cm10 ft. 0 in. ; Pain 10/10; 10/31 00:36 BP 122 / 81; Pulse 77; Resp 15; Pulse Ox 99% on R/A; nw1 10/30 21:50 Body Mass Index 25.39 (58.97 kg, 152.4 cm) cm10 10/30 21:50 Pain Scale: Adult cm10 Jc Coma Score: 10/30 23:35 Eye Response: spontaneous(4). Motor Response: obeys commands(6). Verbal Response: nw1 oriented(5). Total: 15. ED Course: 21:43 Patient arrived in ED. ag3 21:45 [facility] kb 21:45 Lionel Suarez MD is Attending Physician. kb 21:51 Triage completed. cm10 21:52 Arm band placed on Patient placed in an exam room, on a stretcher. cm10 21:57 Patient has correct armband on for positive identification. Bed in low position. Call cm10 light in reach. Provided Education on: ER process and procedures.. Cardiac monitoring not applicable on this patient. 21:58 No provider procedures requiring assistance completed. cm10 22:09 Test, Urine Sent. cm10 22:09 Urinalysis w/ reflexes Sent. cm10 22:09 Basic Metabolic Panel Sent. cm10 22:09 CBC with Diff Sent. cm10 22:10 Initial lab(s) drawn, by hi, sent to lab. Urine collected: clean catch specimen. cm10 Inserted saline lock: 20 gauge in right antecubital area, using aseptic technique. Blood collected. 23:11 CT Abd/Pelvis - IV Contrast Only In Process Unspecified. EDMS 23:26 Deepika Bustillo, RN is Primary Nurse. nw1 23:35 Flushed right antecubital. nw1 10/31 00:37 IV discontinued, intact, bleeding controlled, No redness/swelling at site. Pressure nw1 dressing applied. Administered Medications: No medications were administered Medication: 10/30 21:57 VIS not applicable for this client. cm10 Outcome: 23:57 Discharge ordered by . destiny 10/31 00:37 Discharged to home ambulatory, nw1 Condition: stable Discharge instructions given to patient, Instructed on discharge instructions, Demonstrated understanding of instructions, 01:25 Patient left the ED. nw1 Signatures: Dispatcher [employer] Poppy Vasquez, AROLDOC NIALL-Liliya Douglass ag3 Tona Orellana RN RN cm10 Deepika Bustillo RN RN nw1
[2023-10-31 01:29] VITALS: TEMP 97.3
[2023-10-31 01:31] VITALS: BP 122/81; O2SAT 99
--- NOTE | 2023-10-31 14:37 | RAD REPORT ---
EXAM DESCRIPTION: CT - Abdomen Pelvis W Contrast - 10/31/2023 6:38 am CLINICAL HISTORY: R/o pyelonephritis TECHNIQUE: Contiguous axial images obtained through the abdomen and pelvis following the uneventful administration of IV contrast. Coronal and sagittal reformatted images were provided. This exam was performed according to our departmental dose-optimization program, which includes autom ated exposure control, adjustment of the mA and/or kV according to patient size and/or use of iterati ve reconstruction technique. COMPARISON: None available for comparison. FINDINGS: Lung bases: Clear Liver: Mild diffuse fatty infiltration of the liver. Gallbladder and biliary system: Unremarkable Pancreas: Unremarkable Spleen: Unremarkable Adrenals: Unremarkable Kidneys: Normal renal cortical enhancement. No calculi. No hydronephrosis. GI: There is hyperenhancement of the gastric mucosa which may reflect gastritis. No significant mucos al thickening. Distended stomach with large amount of retained ingested material which may represent gastroparesis or delayed gastric emptying. No bowel obstruction. Appendix: No findings to suggest acute appendicitis. Urinary bladder: Unremarkable Reproductive: Dominant left ovarian follicle measuring approximately 2.2 cm 1 cm hypodensity in adjacent to the endometrium consistent with small submucosal fibroid. Lymph nodes: No pathologically enlarged lymph nodes. Peritoneum: No focal fluid collection. No free air. Vessels: No abdominal aortic aneurysm. Abdominal wall: Small fat-containing periumbilical ventral hernia. Bones: Unremarkable IMPRESSION: 1. Hyperenhancement of the gastric mucosa which may reflect gastritis. Distended stoma ch with large amount of retained ingested material which may represent gastroparesis or delayed gastr ic emptying. 2. Mild diffuse fatty infiltration of the liver. 3. Small uterine submucosal fibroid. 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 The interpreting radiologist is fully responsible for the content of the report.
== END 2023-10-31 01:25 | disposition home or self-care (01) ==
LOC: ER 21:41
DX: R10.9 Unspecified abdominal pain (principal); Z88.1 Allergy status to other antibiotic agents
CPT/HCPCS: 85025; 81001; 80048; 36415; 81025; 74177; 99283; Q9967

== ENCOUNTER 2024-05-06 00:43 | Emergency (ER) | payer OTHER, SELFPAY ==
--- OUTSIDE RECORDS SUMMARY | 2024-05-06 00:46 | XMS REPORT | Continuity of Care Document ---
Author Name Unknown Address [address] [place] [address] [facility] thconnect Address 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 Name Role Phone Farzana Villa Attending Clinician Farzana Inman Admitting Clinician Anayeli pradhan Payers Payer Name Policy Type Policy Number Effective Date Expirati on Date Source Allergies, Adverse Reactions, Alerts Allergy Name Allergy Type Status Severity Reaction(s) Onset Date Inactive Date Treating Clinician Comments Source sulfamet hoxazole DA Active U RASH-UNKNOWN 04-22 00:00: 00 [facility] trimetho prim DA Active U RASH-UNKNOWN 04-22 00:00: 00 [facility] sulfamet hoxazole DA Active U 2006-11 00:00: 00 [facility] trimetho prim DA Active U 2006-11 00:00: 00 [facility] BACTRIM DA Active U 2006-11 00:00: 00 [facility] No Known Contrast Allergie s DA Active U 2006-11 00:00: 00 [facility] No Known Food Allergie s DA Active U 2006-11 00:00: 00 [facility] No Known Other Allergie s DA Active U 2006-11 00:00: 00 [facility] Procedures Procedure Date / Time Performed Performing Clinicia n Source [id number] 2020-04-23 00:00:00 DAVLE [facility] Encounters Start Date/Time End Date/Time Encounter Type Admission Type Attending [facility] Facility Care Department Encounter ID Source 2020-04-23 08:52:00 Inpatient EL Farzana Villa [facility] [id number] [facility] 2020-04-22 20:14:00 Inpatient Farzana Villa [facility] BELKIS [id number] [facility] Results Test Description Test Time Test Comments Results Result Co mments Source AG HEPATITIS B [id number] 22:49:00* Test Item Value Reference Range Interpretation Comme nts AG HEPATITIS B SURFACE (test code = HBSAG) NONREACTIVE NONREACTIVE AB HEPATITIS C [id number] 22:49:00* Test Item Value Reference Range Interpretation Comme nts AB HEPATITIS C (test code = HCVAB) NONREACTIVE NONREACTIVE SIGNAL TO CUTOFF (test code = CUTOFF) 0.24 <0.80 N AB [id number] 22:49:00* Test Item Value Reference Range Interpretation Comme nts AB TREPONEMA (test code = TREPAB) NONREACTIVE NONREACTIVE AG HEPATITIS B [id number] 22:28:00* Test Item Value Reference Range Interpretation Comme nts AG HEPATITIS B SURFACE (test code = HBSAG) NONREACTIVE NONREACTIVE AB HEPATITIS C [id number] 22:28:00* Test Item Value Reference Range Interpretation Comme nts AB HEPATITIS C (test code = HCVAB) NONREACTIVE SIGNAL TO CUTOFF (test code = CUTOFF) <0.80 AB [id number] 22:28:00* Test Item Value Reference Range Interpretation Comme nts AB TREPONEMA (test code = TREPAB) NONREACTIVE NONREACTIVE Coronavirus 2019 nCoV [id number] 22:22:00* Test Item Value Reference Range Interpretation Comme nts Coronavirus 2019 nCoV Bedside (test code = COVNONPUIBED) Negative Negative RESULTS CALLED Chase BuckleyREAD BACK & CONFIRMED? DEREK FShanellLAB. 05/28/20 2222 This result does not rule out co-infections with otherpathogens. * False negative results may occur if a specimen isimproperly collected, transported or handled. False negativeresults may also occur if amplification inhibitors arepresent in the specimen or if inadequate levels of virusesare present in the specimen. Negative results should beconsidered in the context of a patient's recent exposures,history and the presence of clinical signs and symptomsconsistent with COVID-19. * Negative results should be treated as presumptive andtested with an alternative FDA authorized molecular assayif necessary for clinical managment, including infectioncontrol. * As with any molecular test,mutations within the target regions Kebede ID NOW COVID-19 test could affect primerand/or probe binding resulting in failure to detect therescence of the virus.TEST PERFORMED UNDER AN EMERGENCY USE AUTHORIZATION FROM [facility] CBC W/AUTO [id number] 21:44:00* Test Item Value Reference Range Interpretation Comme nts WHITE BLOOD CELL (test code = WBC) [...] pg 27-35 L MEAN CELL HGB CONCETRATION ( test code = MCHC) 31.9 gm/dL 32.2-34.1 L RED CELL DISTRIBUTION WIDTH (test code = RDW) 17.2 % 12.4-16.5 H PLATELET COUNT (test code = PLT) 290 K/mm3 133-385 N MEAN PLATELET VOLUME (test c ode = MPV) 11.1 fl 9.1-12.7 N NEUTROPHIL % (test code = NT%) 82.7 [...] = BA#) 0.0 K/mm3 RBC MORPHOLOGY REQUIRED (kelsi t code = RBCM) NORMAL NORMAL PLATELET MORPHOLOGY REQUIRED (test code = PLTMR) NORMAL NORMAL Notes Date/Time Note Provider Source 2020-04-23 14:34:00 [id number] TQGzalPmhAguXCcjq7t8ucdFl77vh wCkAoJ4pf0QB8XHKbpHfXovySgwkhdS9ti8757-08-80L30:3 4:00 [facility]OB Postpart Progr NoteREPORT#:[id number] REPORT STATUS: SignedDATE:04/23/20 TIME: 1433 PATIENT: DANAY KING UNIT #: [id number]#: [id number] [address] AGE: 34 SEX: F ATTEND: Farzana Villa [facility] AUTHOR: Farzana Villa MD * ALL edits or amendments must be made on the electronic/computer document * Subjective SubjectiveEGA weeks/days: 40 weeksStatus/Day: post Objective Nursing Documentation ReviewNursing Data:The data set between the solid lines has been imported from nursing documentation. Any exceptions have been noted below under Provider comments. Feeding preference: Provider comments on imported nursing data: [] PO STPARTUM DAY #1/2 SUBJECTIVE: No complaints. Scant [...] nontender. Perineum/suture sites are healing well and intact. ASSESSMENT: Recovering well after . PLAN: Continue care per orders. Planning for discharge home tomorrow. Diagnosis, Assessment Plan Diagnosis, Assessment PlanProblem List/A P: 1. Delivery outcome of single liveborn 2. Term delivered Free text A P:s/p NVD - recovering wellAssessment: nml progressPlan: routine care, discharge tomorrowPlan discussed with: patient, nurse at 1435 RPT #:[id number] OF REPORT PRProgress Xajh2320-49-89L63:34:00F.GDOE66774622-8658ZMLdjst able for patient chaiGSVOSEAIWUDTFK8041-52-46P39:35:48 [facility] 2020-04-23 00:01:00 [id number] G6+thQC8bRMYJ8tf/TQh0dHurblW1 Ra0RnMJnrz8ku4QbuYkYXwnKLMsvt+cRkb6590-11-08M44:0 1:00 [facility]OB Delivery NoteREPORT#:[id number] REPORT STATUS: SignedDATE:04/23/20 TIME: 2318 PATIENT: DANAY KING UNIT #: [id number]#: [id number] [address] AGE: 34 SEX: F ATTEND: Farzana Villa [facility] AUTHOR: Kenzie Rubio MD * ALL edits [...] no more than expected at 0138 RPT #:[id number] OF REPORT OBObstetric lslw4260-52-15P96:01:00F.YNCJ07346786-2916BKArjqj able for patient uuhbLZMRDTGYMLMTHP8764-48-57M29:38:52 [employer] [facility] 2020-04-22 23:59:00 [id number] ZU/t0Mf3rfLfnal1R7ME/A/fC2YsJ M4L45+oUccvGv5jTvgqNMT79yD8yeV/Bel9337-81-30I79:5 9:00 [facility]OB Admission / H PREPORT#:[id number] REPORT STATUS: SignedDATE:04/22/20 TIME: 2359 PATIENT: DANAY KING UNIT #: [id number]#: [id number] ROOM/BED: [address]: [birth year] AGE: 34 SEX: F [facility] AUTHOR: Kenzie Rubio MD * ALL edits [...] Weight Weight (lb): Weight (oz): Weight (kg): 65.209707 Physical ExamHEENT: normocephalic w/o injury, pupils equalCardiac: regular rate and rhythm, no clinically sig murmurLungs: clear to auscultation, no rales, no rhonchiAbdomen: gravid, no abnormal tenderness, no guardingUterine activity: Monitor: tocoPelvic exam: Pelvis clinically adequate: yes, inlet appears appropriate, pubic bone configappropr, no midpelvic contractionCervical/ exam: Dilatation (cm): 5 Effacement [...] admit to inpatient, delivery at 0140 RPT #:[id number] OF REPORT HPHistory and physical gthaisbvudg3301-18-59A47:59:00F.PFPG86024001-2498 AVAvailable for patient yguuJMWALMLPOHOOXJ2806-04-84F81:40:52 [facility] 2020-04-22 23:19:00 LZpuanweonc87493418S ExVZDHNcFrYo8njJ88woe97sLGZSf eA0os7IjFwEFL8pElQDxEj7LQ8Sm67wjS92791-21-39T76:1 9:00 [facility]Clinical NoteREPORT#:[id number] REPORT STATUS: SignedDATE:04/22/20 TIME: 2318 PATIENT: DANAY KING UNIT #: [id number]#: [id number] [facility] AGE: 34 SEX: F ATTEND: Farzana Villa [facility] AUTHOR: Carie Grullon MD * ALL edits or amendments must be made on the electronic/computer document * Clinical NoteNote:Called by RN to AROM FHR category 1. VE:/ AROMed no fluid. FHR category 1 at 2323 RPT #:[id number] OF REPORT CLClinical gbvq8777-82-42F97:19:00F.KPKT34488928-7475EEPcnzt able for patient wwzzZCOVFLMHCGXYOE9688-24-38H51:24:13 [facility]
[2024-05-06 01:51] LABS: Absolute Basophils 0.1 K/uL (0-0.5); Absolute Eosinophils 0.1 K/uL (0-0.5); Absolute Lymphocytes (CBC) 2.5 K/uL (0.7-4.9); Absolute Monocytes 0.5 K/uL (0.1-1.3); Absolute Neutrophil 3.5 K/uL (1.8-8.0); Basophils % 0.8 % (0-1.3); Eosinophils % 1.9 % (0-4.4); Hematocrit 40.2 % (36.0-45.0); Hemoglobin 13.4 g/dL (12.0-15.0); Lymphocytes % 37.7 % (15.3-44.8); MCH 31.4 pg (27.0-35.0); MCHC 33.4 g/dL (32.0-36.0); MCV 94.1 fL (80-100); MPV 8.7 fL (7.6-11.3); Monocytes % 7.2 % (3.3-12.3); Neutrophils % 52.4 % (41.7-73.7); Nucleated Red Blood Cells % 0.1 % (0-0); Platelets 295 thou/uL (152-406); RBC Red Blood Cell Count 4.28 M/uL (3.86-4.86); Red Cell Distribution Width 14.8 % (12.1-15.2)
[2024-05-06 01:55] LABS: PT Prothrombin Time 10.2 SECONDS (9.5-12.5); PTT, Activated Partial Thromb 30.4 SECONDS (24.3-36.9); Protime INR 0.93
[2024-05-06 02:04] LABS: ALT/SGPT 23 U/L (13-56); AST/SGOT 11 U/L (15-37); Albumin 3.3 g/dL (3.4-5.0); Albumin/Globulin Ratio 0.7 (1.1-1.8); Alkaline Phosphatase 72 U/L (45-117); Anion Gap 5.3 mEq/L (5.0-15.0); BUN Blood Urea Nitrogen 14 mg/dL (7-18); Bicarbonate 28 mEq/L (21-32); Bilirubin Total 0.2 mg/dL (0.2-1.0); Globulin 4.6 g/dL (2.3-3.5); Glomerular Filtration Rate 113 ml/min (=/>90); Glucose Level 108 mg/dL (74-106); Magnesium 1.8 mg/dL (1.6-2.4); Potassium 3.3 mEq/L (3.5-5.1); Protein, Total 7.9 g/dL (6.4-8.2); Sodium Level 136 mEq/L (136-145); Troponin High Sensitivity 3.7 pg/mL (<58.9)
[2024-05-06 02:35] LABS: Bilirubin Direct < 0.2 mg/dL (0-0.2)
[2024-05-06 03:39] LABS: Specific Gravity 1.021 (1.005-1.030)
[2024-05-06 03:45] LABS: Specific Gravity 1.021 (1.005-1.030); Urine Bacteria <20 /HPF (<20); Urine Bilirubin NEGATIVE (Negative); Urine Blood Negative (Negative); Urine Clarity Extremely Turbid (Clear); Urine Color Light-Yellow (Yellow); Urine Culture Reflex Order NOT NEEDED; Urine Glucose NEGATIVE (Negative); Urine Ketones NEGATIVE (Negative); Urine Microscopic Reflex YN ORDER UMIC; Urine Mucus Slight /HPF (None Seen); Urine Nitrite NEGATIVE (Negative); Urine Protein NEGATIVE (Negative); Urine RBC None Seen /HPF (None Seen); Urine Urobilinogen Normal (Normal); Urine WBC <5 /HPF (<5); Urine pH 6.5 (5.0-7.0)
--- NOTE | 2024-05-06 04:00 | ER ---
Nurse's Notes [facility] Name: Lissette Trujillo Age: 38 yrs Sex: Female : 1985 Arrival Date: 05/06/2024 Time: 00:43 Bed 14 Private MD: Diagnosis: Paresthesias left arm, acute numbness left arm and hand;Acute peripheral neuropathy Presentation: 05/06 01:00 Chief complaint: Patient states: My left arm keeps going numb and feels heavy, my neck jw7 has been doing the same thing and I've been drooling. 01:00 Coronavirus screen: At this time, the client does not indicate any symptoms associated jw7 with coronavirus-19. Ebola Screen: No symptoms or risks identified at this time. Initial Sepsis Screen: Does the patient meet any 2 criteria? No. Patient's initial sepsis screen is negative. Does the patient have a suspected source of infection? No. Patient's initial sepsis screen is negative. Risk Assessment: Do you want to hurt yourself or someone else? Patient reports no desire to harm self or others. Onset of symptoms was May 06, 2024. 01:00 Method Of Arrival: Ambulatory jw7 01:00 Acuity: DEVEN 3 jw7 Triage Assessment: 01:00 General: Appears in no apparent distress. comfortable, Behavior is calm, cooperative, jw7 appropriate for age, anxious. Pain: Denies pain. EENT: No deficits noted. No signs and/or symptoms were reported regarding the EENT system. Neuro: Level of Consciousness is awake, alert, obeys commands, Oriented to person, place, time, situation, Appropriate for age Reports numbness in left arm and neck. Cardiovascular: Heart tones S1 S2 present Capillary refill < 3 seconds Patient's skin is warm and dry. Respiratory: Airway is patent Trachea midline Respiratory effort is even, unlabored, Respiratory pattern is regular, symmetrical. GI: Abdomen is flat, non-distended, Bowel sounds present X 4 quads. Abd is soft and non tender X 4 quads. : No deficits noted. No signs and/or symptoms were reported regarding the genitourinary system. Derm: Skin is intact, is healthy with good turgor, Skin is dry, Skin is normal, Skin temperature is warm. Musculoskeletal: Circulation, motion, and sensation intact. Range of motion: intact in all extremities. TIMBER ESTIMATOR: 01:00 LMP 04/21/2024, unknown jw7 Historical: - Allergies: 01:00 Bactrim; jw7 - Home Meds: 01:00 None [Active]; jw7 - PMHx: 01:00 None; jw7 - PSHx: 01:00 None; jw7 - Immunization history:: Adult Immunizations up to date, Client reports receiving the 2nd dose of the Covid vaccine, Last tetanus immunization: > 10 years ago Flu vaccine is not up to date. - Infectious Disease History:: Denies. - Social history:: Smoking status: Patient denies any tobacco usage or history of. Patient/guardian denies using alcohol, street drugs, IV drugs. Screenin:00 [facility] ED Fall Risk Assessment (Adult) History of falling in the last 3 months, jw7 including since admission No falls in past 3 months (0 pts) Confusion or Disorientation No (0 pts) Intoxicated or Sedated No (0 pts) Impaired Gait No (0 pts) Mobility Assist Device Used No (0 pt) Altered Elimination No (0 pt) Score/Fall Risk Level 0 - 2 = Low Risk Oriented to surroundings, Maintained a safe environment, Educated pt \T\ family on fall prevention, incl call for assistance when getting out of bed. Abuse screen: Denies threats or abuse. Denies injuries from another. Nutritional screening: No deficits noted. Tuberculosis screening: No symptoms or risk factors identified. Assessment: 01:00 General: See Triage Assessment. jw7 02:00 Reassessment: Patient appears in no apparent distress at this time. No changes from jw7 previously documented assessment. Patient and/or family updated on plan of care and expected duration. Pain level reassessed. Patient is alert, oriented x 3, equal unlabored respirations, skin warm/dry/pink. 03:00 General: Appears in no apparent distress. comfortable, Behavior is calm, cooperative, jj7 appropriate for age. Pain: Denies pain. Neuro: No deficits noted. Level of Consciousness is awake, alert, obeys commands, Oriented to person, place, time, situation, Appropriate for age Tray Delivery Aide are equal bilaterally Moves all extremities. Full function Gait is steady, Speech is normal, Facial symmetry appears normal, Intact Numbness in dorsal aspect of left forearm. 03:00 Reassessment: ASSUMED CARE OF PT. PT LYING IN BED. NO PAIN OR DISTRESS NOTED. VS STABLE.jj7 Vital Signs: 01:00 BP 135 / 73; Pulse 63; Resp 16 S; Temp 98.3(O); Pulse Ox 100% on R/A; Weight 54.43 kg; jw7 Height 5 ft. 0 in. ; Pain 0/10; 02:30 BP 127 / 84; Pulse 67; Resp 17 S; Pulse Ox 99% on R/A; jw7 03:00 BP 125 / 92; Pulse 65; Resp 18; Pulse Ox 100% ; jj7 04:17 BP 117 / 82; Pulse 60; Resp 18; Temp 98.5; Pulse Ox 99% ; Pain 0/10; jj7 01:00 Body Mass Index 23.44 (54.43 kg, 152.4 cm) jw7 01:00 Pain Scale: Adult jw7 04:17 Pain Scale: Adult j [place] Coma Score: 03:37 Eye Response: spontaneous(4). Motor Response: obeys commands(6). Verbal Response: sp4 oriented(5). Total: 15. NIH Stroke Scale Scores: 03:37 NIHSS Score: 0 sp4 ED Course: 00:46 Patient arrived in ED. ra3 00:54 Celena Burden, DEZ is Primary Nurse. jw7 00:55 [facility]C [facility] kb 00:55 Lionel Suarez MD is Attending Physician. kb 01:00 Arm band placed on. jw7 01:00 Patient has correct armband on for positive identification. Bed in low position. Call [facility] light in reach. Provided Education on: Use of Call Light. 01:07 Triage completed. jw7 01:20 Missed attempt(s): 20 gauge in left forearm. Bleeding controlled, band aid applied, jw7 catheter tip intact. 01:23 Initial lab(s) drawn, by la, sent to lab. Inserted saline lock: 22 gauge in left jw7 antecubital area, using aseptic technique. Blood collected. :23 Basic Metabolic Panel Sent. jw7 01:23 CBC with Diff Sent. jw7 01:23 Hepatic Function Sent. jw7 :23 Magnesium Sent. jw7 :23 Protime (+inr) Sent. jw7 :23 Ptt, Activated Sent. jw7 :24 Troponin High Sensitivity Sent. jw7 01:27 CT Head Brain wo Cont In Process Unspecified. EDMS 01:45 EKG done, by ED staff, reviewed by Lionel Suarez MD. jw7 03:00 Warm blanket given. jj7 03:00 No provider procedures requiring assistance completed. jj7 03:59 Musa Kidd MD is Referral Physician. sp4 04:17 IV discontinued, intact, bleeding controlled, No redness/swelling at site. Pressure jj7 dressing applied. Administered Medications: No medications were administered Medication: 03:00 VIS not applicable for this client. jj7 Outcome: 04:00 Discharge ordered by . sp4 04:17 Discharged to home ambulatory, with family, jj7 04:17 Condition: good 04:17 Discharge instructions given to patient, Instructed on discharge instructions, follow up and referral plans. Demonstrated understanding of instructions, follow-up care, 04:18 Patient left the ED. jj7 NIH Stroke Scale - NIH Stroke Score Date: 05/06/2024 Time: 03:37 Total Score = 0 10. Dysarthria (speech clarity - read or repeat words) - 0(Normal) 11. Extinction and Inattention (visual/tactile/auditory/spatial/personal) - 0(No abnormality) 1a. Level of Consciousness (LOC) - 0(Alert) 1b. Level of Consciousness (LOC) (Month \T\ Age) - 0(Both) 1c. LOC Commands (Open \T\ Closes Eyes/English Faculty Member) - 0(Both) 2. Best Gaze (Lateral Gaze Paresis) - 0(Normal) 3. Visual Field Loss - 0(No visual loss) 4. Facial Palsy - 0(Normal) 5a. Left Arm: Motor (10-second hold) - 0(No drift) 5b. Right Arm: Motor (10-second hold) - 0(No drift) 6a. Left Leg: Motor (5-second hold - always test supine) - 0(No drift) 6b. Right Leg: Motor (5-second hold - always test supine) - 0(No drift) 7. Limb Ataxia (finger/nose \T\ heel/pool - test with eyes open) - 0(Absent) 8. Sensory Loss (pinprick arms/legs/face) - 0(Normal) 9. Best Language: Aphasia (description/naming/reading) - 0(No aphasia) Initials: sp4 Signatures: Dispatcher [employer] Poppy Vasquez, YESENIA SAP PI DEVELOPER-Celena Stewart RN RN jw7 Kory Smart RN RN jj7 Lionel Suarez MD MD sp4 Nathalie Dye ra3
--- NOTE | 2024-05-06 04:00 | EDPHYS ---
Physician Documentation [facility] Name: Lissette Trujillo Age: 38 yrs Sex: Female : 1985 Arrival Date: 05/06/2024 Time: 00:43 Bed 14 Private MD: ED Physician Lionel Suarez HPI: 05/06 01:14 This 38 yrs old Black Female presents to ER via Ambulatory with complaints of Numbness kb Of Arm - including Neck numbness. 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 States upon onset she had numbness to left neck, drooling and inability to control neck. States most symptoms have resolved, but she still feels heaviness in left arm below elbow. Denies chest pain, shortness of breath, slurred speech, facial droop. Pt has no medical history and only take vitamins.. 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 - Infectious Disease History:: Denies. - Social history:: Smoking status: Patient denies any tobacco usage or history of. Patient/guardian denies using alcohol, street drugs, IV drugs. ROS: 01:11 Constitutional: As per HPI kb Exam: 01:11 Constitutional: This is a well developed, well nourished patient who is awake, alert, kb and in no acute distress. Head/Face: Normocephalic, atraumatic. ENT: Moist Mucous membranes Cardiovascular: Regular rate Respiratory: Respirations even and unlabored. No increased work of breathing. Talking in full sentences Abdomen/GI: Soft, non-tender. No distention Skin: Warm, dry with normal turgor. Normal color. MS/ Extremity: Pulses equal, no cyanosis. Neurovascular intact. Full, normal range of motion. Neuro: Awake and alert, GCS 15, oriented to person, place, time, and situation. Moves all extremities. Normal gait. 03:37 ECG was reviewed by the Attending Physician. EKG at 0 140 sinus bradycardia at the rate sp4 of 56 otherwise normal. 03:54 Neuro: Orientation: is normal, to person, place, time \T\ situation. Mentation: is sp4 normal, appropriate for stated age, Memory: is normal, appropriate for stated age, Cranial nerves: grossly normal, extraocular movements are intact, Facial palsy and sensory deficits are absent. Cerebellar function: is grossly normal, is grossly normal based on the patient's age, Motor: is normal, is grossly normal based on the patient's age, no acute changes, moves all fours, strength is 5/5 in all extremities, Sensation: Mildly diminished sensation forearm left hand , Gait: is steady, at a normal pace, without difficulty, appropriate for age, Deep tendon reflexes are 2+ (normal) in the right bicep, right brachioradialis, right patellar, right Achilles, left bicep, left brachioradialis, left patellar and left Achilles, Abnormal movements: there are no abnormal movements, Vital Signs: 01:00 BP 135 / 73; Pulse 63; Resp 16 S; Temp 98.3(O); Pulse Ox 100% on R/A; Weight 54.43 kg; jw7 Height 5 ft. 0 in. ; Pain 0/10; 02:30 BP 127 / 84; Pulse 67; Resp 17 S; Pulse Ox 99% on R/A; 7 03:00 BP 125 / 92; Pulse 65; Resp 18; Pulse Ox 100% ; j7 04:17 BP 117 / 82; Pulse 60; Resp 18; Temp 98.5; Pulse Ox 99% ; Pain 0/10; jj7 01:00 Body Mass Index 23.44 (54.43 kg, 152.4 cm) [facility] 01:00 Pain Scale: Adult [facility] 04:17 Pain Scale: Adult j NIH Stroke Scale Scores: 03:37 NIHSS Score: 0 sp4 Jc Coma Score: 03:37 Eye Response: spontaneous(4). Motor Response: obeys commands(6). Verbal Response: sp4 oriented(5). Total: 15. MDM: 00:55 Patient medically screened. kb 01:12 Data reviewed: vital signs, nurses notes. kb 01:16 Differential diagnosis: cva, tia, radiculopathy, anxiety. kb 01:30 Transition of care: After a detail discussion of the patient's case, care is kb transferred to Lionel Suarez MD. 03:36 ED course: COMPARISON: None FINDINGS: BRAIN: No extra-axial fluid collection. No sp4 intracranial hemorrhage. No transtentorial herniation. No focal noel-white matter differentiation abnormality. MIDLINE SHIFT: None. VENTRICLES: Unremarkable No ventriculomegaly. BONES/JOINTS: No fracture of the calvarium or visualized facial bones. SOFT TISSUES: Unremarkable SINUSES: No masses, bony erosion or evidence of acute sinusitis. MASTOID AIR CELLS: Unremarkable as visualized. No mastoid effusion. IMPRESSION: No acute intracranial abnormality.. 03:54 Consideration of Admission/Observation Escalation of care including sp4 admission/observation considered. ED course: Patient at this time does not have sign of acute CVA. Patient reported that the head was floating there was some drooling that was also persistent discomfort in the left hand consisting of numbness.. At this time will recommend follow-up with neurology for MRI over the brain with and without contrast to be evaluated for multiple sclerosis or some other unusual pathology. . 05/06 01:05 Order name: Basic Metabolic Panel; Complete Time: 03:36 kb 05/06 01:05 Order name: CBC with Diff; Complete Time: 02:29 kb 05/06 01:05 Order name: Hepatic Function; Complete Time: 03:36 kb 05/06 01:05 Order name: Magnesium; Complete Time: 03:36 kb 05/06 01:05 Order name: Test, Urine kb 05/06 01:05 Order name: Protime (+inr); Complete Time: 02:29 kb 05/06 01:05 Order name: Ptt, Activated; Complete Time: 02:29 kb 05/06 01:05 Order name: Troponin High Sensitivity; Complete Time: 03:36 kb 05/06 01:05 Order name: Urinalysis w/ reflexes kb 05/06 01:05 Order name: CT Head Brain wo Cont kb 05/06 01:05 Order name: Cardiac monitoring; Complete Time: 01:23 kb 05/06 01:05 Order name: EKG - Nurse/Tech; Complete Time: 01:45 kb 05/06 01:05 Order name: IV Saline Lock; Complete Time: :23 kb 05/06 01:05 Order name: Labs collected and sent; Complete Time: :23 kb 05/06 01:05 Order name: NPO; Complete Time: : kb 05/06 01:05 Order name: O2 Per Protocol; Complete Time: : kb 05/06 01:05 Order name: O2 Sat Monitoring; Complete Time: : kb EC:37 Rate is 56 beats/min. Rhythm is regular, Sinus bradycardia. QRS [place] is Normal. CT sp4 interval is normal. QRS interval is normal. QT interval is normal. No Q waves. T waves are Normal. No ST changes noted. Clinical impression: No evidence of ischemia. Interpreted by me. Reviewed by me. Administered Medications: No medications were administered Disposition: 02:32 Co-signature as Attending Physician, Lionel Suarez MD I agree with the assessment sp4 and plan of care. I reviewed the patient's care provided by Advanced Practice Provider \T\ agree w/ the diagnosis \T\ care plan. I personally saw the pt \T\ performed a substantive portion of the visit, incldng all aspects of the (History/Exam/Medical Decision Making). Disposition Summary: 05/06/24 04:00 Discharge Ordered Problem: new sp4 Symptoms: have improved sp4 Condition: Stable sp4 Diagnosis - Paresthesias left arm, acute numbness left arm and hand sp4 - Acute peripheral neuropathy sp4 Followup: sp4 - With: Musa Kidd MD - When: 7 - 10 days - Reason: Recheck today's complaints Discharge Instructions: - Discharge Summary Sheet sp4 - Paresthesia, [id number] sp4 Forms: - Patient Portal Instructions sp4 NIH Stroke Scale - NIH Stroke Score Date: 05/06/2024 Time: 03:37 Total Score = 0 10. Dysarthria (speech clarity - read or repeat words) - 0(Normal) 11. Extinction and Inattention (visual/tactile/auditory/spatial/personal) - 0(No abnormality) 1a. Level of Consciousness (LOC) - 0(Alert) 1b. Level of Consciousness (LOC) (Month \T\ Age) - 0(Both) 1c. LOC Commands (Open \T\ Closes Eyes/Accounts Administrator) - 0(Both) 2. Best Gaze (Lateral Gaze Paresis) - 0(Normal) 3. Visual Field Loss - 0(No visual loss) 4. Facial Palsy - 0(Normal) 5a. Left Arm: Motor (10-second hold) - 0(No drift) 5b. Right Arm: Motor (10-second hold) - 0(No drift) 6a. Left Leg: Motor (5-second hold - always test supine) - 0(No drift) 6b. Right Leg: Motor (5-second hold - always test supine) - 0(No drift) 7. Limb Ataxia (finger/nose \T\ heel/pool - test with eyes open) - 0(Absent) 8. Sensory Loss (pinprick arms/legs/face) - 0(Normal) 9. Best Language: Aphasia (description/naming/reading) - 0(No aphasia) Initials: sp4 Signatures: Dispatcher [employer] Poppy Vasquez, CHILD DEVELOPMENT CONSULTANT-C CHILD DEVELOPMENT CONSULTANT-CkCelena Jama RN RN jw7 Lionel Suarez MD MD sp4
[2024-05-06 04:39] VITALS: BP 117/82; TEMP 98.5; O2SAT 99
--- NOTE | 2024-05-06 11:50 | RAD REPORT ---
EXAM DESCRIPTION: CT - Head Brain Wo Cont - 05/06/2024 7:32 am CLINICAL HISTORY: The patient is 38 years old and is Female; Numbness TECHNIQUE: Axial computed tomography images of the head/brain without intravenous contrast. Sagitt al and coronal reformatted images were created and reviewed. This CT exam was performed using one o r more of the following dose reduction techniques: automated exposure control, adjustment of the mA and/or kV according to patient size, and/or use of iterative reconstruction technique. COMPARISON: None FINDINGS: BRAIN: No extra-axial fluid collection. No intracranial hemorrhage. No transtentorial he rniation. No focal noel-white matter differentiation abnormality. MIDLINE SHIFT: None. VENTRICLES: Unremarkable No ventriculomegaly. BONES/JOINTS: No fracture of the calvarium or visualized facial bones. SOFT TISSUES: Unremarkable SINUSES: No masses, bony erosion or evidence of acute sinusitis. MASTOID AIR CELLS: Unremarkable as visualized. No mastoid effusion. IMPRESSION: No acute intracranial abnormality. Electronically signed by: Juan Mora MD 05/06/2024 02:43 AM CDT RP Due to temporary technical issues with the PACS/Fluency reporting system, reports are being signed by the in house radiologist without review as a courtesy to ensure prompt reporting. The interpreting r adiologist is fully responsible for the content of the report.
--- NOTE | 2024-05-06 15:06 | EKG ---
Test Date: 2024-05-06 Test Time: 01:40:01 Format Proofreader: HALLEY MEASUREMENT RESULTS: Intervals: Rate: 56 [place]: 144 QRSD: 74 QT: 398 QTc: 384 [place]: P: 66 [place]: 144 QRS: 66 T: 29 INTERPRETIVE STATEMENTS: Sinus bradycardia T wave abnormality, consider anterior ischemia Abnormal ECG No previous ECG available for comparison Electronically Signed On 05-06-24 15:04:56 CDT by Chetan Alarcon
== END 2024-05-06 04:18 | disposition home or self-care (01) ==
LOC: ER 00:43
DX: G62.9 Polyneuropathy, unspecified (principal); R20.0 Anesthesia of skin
CPT/HCPCS: 36415; 70450; 80048; 80076; 81001; 81025; 83735; 84484; 85025; 85610; 85730; 93005; 99284

== ENCOUNTER 2025-08-20 08:09 | Inpatient (IN) | payer SELFPAY ==
--- OUTSIDE RECORDS SUMMARY | 2025-08-20 08:13 | XMS REPORT | Continuity of Care Document ---
Author Name Unknown Address [address] [facility] [address] [place] [address] [facility] [place] Address [address] [facility] [address] [place] [address] Care Team Providers Care Talent Associate Name Role Phone Farzana Villa Attending Clinician Farzana Inman Admitting Clinician Anayeli pradhan Payers Payer Name Policy Type Policy Number Effective Date Expirati on Date Source Allergies, Adverse Reactions, Alerts Allergy Name Allergy Type Status Severity Reaction(s) Onset Date Inactive Date Treating Clinician Comments Source sulfamet hoxazole DA Active U RASH-UNKNOWN 04-22 00:00: 00 [facility] trimetho prim DA Active U RASH-UNKNOWN 04-22 00:00: 00 [facility] sulfamet hoxazole DA Active U 2006-11 00:00: 00 [facility] trimetho prim DA Active U 2006-11 00:00: 00 [facility] BACTRIM DA Active U 2006-11 00:00: 00 [facility] No Known Contrast Allergie s DA Active U 2006-11 00:00: 00 [facility] No Known Food Allergie s DA Active U 2006-11 00:00: 00 [facility] No Known Other Allergie s DA Active U 2006-11 00:00: 00 [facility] Procedures Procedure Date / Time Performed Performing Clinicia n Source [id number] 2020-04-23 00:00:00 [facility] Encounters Start Date/Time End Date/Time Encounter Type Admission Type Attending [facility] Care Facility Care Department Encounter ID Source 2020-04-23 08:52:00 Inpatient EL Farzana Villa [facility] LD [id number] [facility] 2020-04-22 20:14:00 Inpatient Farzana Villa [facility] BELKIS [id number] [facility] Results Test Description Test Time Test Comments Results Result Co mments Source AG HEPATITIS B [id number] 22:49:00* Test Item Value Reference Range Interpretation Comme nts AG HEPATITIS B SURFACE (test code = HBSAG) NONREACTIVE NONREACTIVE AB HEPATITIS C [id number] 22:49:00* Test Item Value Reference Range Interpretation Comme nts AB HEPATITIS C (test code = HCVAB) NONREACTIVE NONREACTIVE SIGNAL TO CUTOFF (test code = CUTOFF) 0.24 <0.80 N AB [id number] 22:49:00* Test Item Value Reference Range Interpretation Comme nts AB TREPONEMA (test code = TREPAB) NONREACTIVE NONREACTIVE AG HEPATITIS B [id number] 22:28:00* Test Item Value Reference Range Interpretation Comme nts AG HEPATITIS B SURFACE (test code = HBSAG) NONREACTIVE NONREACTIVE AB HEPATITIS C [id number] 22:28:00* Test Item Value Reference Range Interpretation Comme nts AB HEPATITIS C (test code = HCVAB) NONREACTIVE SIGNAL TO CUTOFF (test code = CUTOFF) <0.80 AB [id number] 22:28:00* Test Item Value Reference Range Interpretation Comme nts AB TREPONEMA (test code = TREPAB) NONREACTIVE NONREACTIVE Coronavirus 2019 nCoV [id number] 22:22:00* Test Item Value Reference Range Interpretation Comme nts Coronavirus 2019 nCoV Bedside (test code = COVNONPUIBED) Negative Negative RESULTS CALLED Chase BuckleyREAD BACK & CONFIRMED? DEREK F.LAB.IR 04/22/20 9345 This result does not rule out co-infections [...] PERFORMED UNDER AN EMERGENCY USE AUTHORIZATION FROM [facility] CBC W/AUTO [id number] 21:44:00* Test Item Value Reference Range Interpretation [...] Notes Date/Time Note Provider Source 2020-04-23 14:34:00 [facility] ([facility]) OB Postpart Progr Note REPORT#:[id number] REPORT STATUS: Signed DATE:04/23/20 TIME: 1433 PATIENT: DANAY KING UNIT #: [id number] ROOM/BED: [address] : [address] AGE: 34 SEX: F ATTEND: Farzana Villa MD ADM AUTHOR: Farzana Villa MD * ALL edits or amendments must be made on the electronic/computer document * Subjective Subjective EGA weeks/days: 40 weeks Status/Day: post Objective Nursing Documentation Review Nursing Data: The data set between the solid lines has been imported from nursing documentation. Any exceptions have been noted below under Provider comments. Feeding preference: Provider comments on imported nursing data: [] DAY #1/2 SUBJECTIVE: No complaints. Scant lochia. Tolerating a regular diet. Ambulatory. Voiding [...] infant 2. Term delivered Free text A P: s/p NVD - recovering well Assessment: nml progress Plan: routine care, discharge tomorrow Plan discussed with: patient, nurse at 1435 RPT #:[id number] END OF REPORT [facility] 2020-04-23 00:01:00 [facility] ([facility]) OB Delivery Note REPORT#:[id number] REPORT STATUS: Signed DATE:04/23/20 TIME: 0001 PATIENT: DANAY KING UNIT #: [id number] ROOM/BED: [address] : [address] AGE: 34 SEX: F ATTEND: Farzana Villa MD ADM AUTHOR: Kenzie Rubio MD * ALL edits or amendments must be made on the electronic/computer document * OB Delivery Pre-delivery [place] evaluation at delivery: NRP certified personnel Admission EGA (wks/days): 39 weeks EGA at [...] no more than expected at 0138 RPT #:[id number] [facility] 2020-04-[facility] 23:59:00 [facility] ([facility]) OB Admission / H P REPORT#:[id number] REPORT STATUS: Signed DATE:04/22/20 TIME: 2358 PATIENT: DANAY KING UNIT #: [id number] ROOM/BED: [address] : [address] AGE: 34 SEX: F ATTEND: Farzaan Villa MD ADM AUTHOR: Kenzie Rubio MD * ALL edits or amendments must be made on the electronic/computer document * OB Admission H P Hx [...] Weight Weight (lb): Weight (oz): Weight (kg): 65.574161 Physical Exam HEENT: normocephalic w/o injury, pupils equal Cardiac: regular rate and rhythm, no clinically sig murmur Lungs: clear to auscultation, no rales, no rhonchi Abdomen: gravid, no abnormal tenderness, no guarding Uterine activity: Monitor: toco Pelvic exam: Pelvis [...] labor>39 wks Plan: admit to inpatient, delivery at 0140 RPT #:[id number] END OF REPORT [facility] 2020-04-22 23:19:00 [facility] ([facility]) Clinical Note REPORT#:[id number] REPORT STATUS: Signed DATE:04/22/20 TIME: 2318 PATIENT: DANAY KING UNIT #: [id number] ROOM/BED: [address] : [address] AGE: 34 SEX: F ATTEND: Farzana Villa MD ADM AUTHOR: Carie Grullon MD * ALL edits or amendments must be made on the electronic/computer document * Clinical Note Note: Called by RN to AROM FHR category 1. VE: AROMed no fluid. FHR category 1 at 2323 RPT #:[id number] END OF REPORT [facility]
[2025-08-20 08:47] LABS: Absolute Lymphocytes (CBC) 2.9 K/uL (0.7-4.9); Hematocrit 39.7 % (36.0-45.0); Hemoglobin 13.7 g/dL (12.0-15.0); MCH 31.7 pg (27.0-35.0); MCHC 34.7 g/dL (32.0-36.0); MCV 91.6 fL (80-100); MPV 8.1 fL (7.6-11.3); Nucleated RBC Absolute Count 0.0 (0-0); Nucleated Red Blood Cells % 0.0 % (0-0); RBC Red Blood Cell Count 4.33 M/uL (3.86-4.86); White Blood Count 7.60 thou/uL (4.3-10.9)
[2025-08-20 08:54] LABS: PT Prothrombin Time 11.7 SECONDS (10-13.0); Protime INR 1.04
[2025-08-20 09:05] LABS: Anion Gap 10.2 mEq/L (5.0-15.0); BUN Blood Urea Nitrogen 13.0 mg/dL (7-18); Glucose Level 105.0 mg/dL (74-106); NT PRO-BNP 39.0 pg/mL (<125); Potassium 3.2 mEq/L (3.5-5.1); Troponin High Sensitivity 5.8 pg/mL (<58.9)
--- NOTE | 2025-08-20 09:06 | RAD REPORT ---
EXAMINATION: ONE VIEW CHEST XR CLINICAL INDICATION: Female, 39 years old.,CHEST PAIN TECHNIQUE: Frontal chest projection is submitted. Examination is limited by patient positioning and t echnique. COMPARISON: No prior exam. FINDINGS: The lungs are well inflated and clear. No pneumothorax or sizable effusion. The heart is normal in s ize. Mediastinal contours are unremarkable. IMPRESSION: No acute intrathoracic abnormalities.
[2025-08-20] MEDS ORDERED: FAMOTIDINE 20 MG/2 ML VIAL IV ONE (09:15)
[2025-08-20] MEDS ORDERED: MAGNES/ALUMIN/SIMET 30ML UCUP ONE (09:15)
[2025-08-20] MEDS ORDERED: LIDOCAINE VISCOUS 2% 10ML ORAL SOLN ONE (09:15)
--- NOTE | 2025-08-20 10:01 | ER ---
Nurse's Notes [facility] Name: Lissette Trujillo Age: 39 yrs Sex: Female : 1985 Arrival Date: 08/20/2025 Time: 08:09 Bed 14 Private MD: Diagnosis: Chest pain, unspecified Presentation: 08/20 08:23 Chief complaint: Patient states: midsternal chest pain started in the last 30 minutes , iw feels like sharp, pressure , 10/10. Coronavirus screen: At this time, the client does not indicate any symptoms associated with coronavirus-19. Ebola Screen: No symptoms or risks identified at this time. Initial Sepsis Screen: Does the patient meet any 2 criteria? No. Patient's initial sepsis screen is negative. Does the patient have a suspected source of infection? No. Patient's initial sepsis screen is negative. Risk Assessment: Do you want to hurt yourself or someone else? Patient reports no desire to harm self or others. 08:23 Method Of Arrival: Ambulatory iw 08:24 Onset of symptoms was August 20, 2025. iw 08:24 Acuity: DEVEN 3 iw Historical: - Allergies: 08:24 Bactrim; iw - Home Meds: 08:24 None [Active]; iw - PMHx: 08:24 None; iw - PSHx: 08:24 None; iw - Immunization history:: Adult Immunizations not up to date. - Infectious Disease History:: Denies. - Social history:: Smoking status: Patient denies any tobacco usage or history of. - Family history:: not pertinent. - Hospitalizations: : No recent hospitalization is reported. Screenin:33 [facility] ED Fall Risk Assessment (Adult) History of falling in the last 3 months, db including since admission No falls in past 3 months (0 pts) Confusion or Disorientation No (0 pts) Intoxicated or Sedated No (0 pts) Impaired Gait No (0 pts) Mobility Assist Device Used No (0 pt) Altered Elimination No (0 pt) Score/Fall Risk Level 0 - 2 = Low Risk Oriented to surroundings, Maintained a safe environment. Abuse screen: Denies threats or abuse. Denies injuries from another. Nutritional screening: No deficits noted. Tuberculosis screening: No symptoms or risk factors identified. Assessment: 08:32 Reassessment: Patient appears in no apparent distress at this time. Patient and/or db family updated on plan of care and expected duration. Pain level reassessed. Patient is alert, oriented x 3, equal unlabored respirations, skin warm/dry/pink. General: Appears in no apparent distress. comfortable. Pain: Complains of pain in chest. Neuro: Level of Consciousness is awake, alert, obeys commands, Oriented to person, place, time, situation. Respiratory: Airway is patent Respiratory effort is even, unlabored, Respiratory pattern is regular, symmetrical. Vital Signs: 08:30 BP 153 / 88; Pulse 57; Resp 18; Pulse Ox 98% on R/A; db 09:00 BP 142 / 85; Pulse 55; Resp 15; Pulse Ox 0100% ; db 10:00 BP 146 / 99; Pulse 68; Resp 16; Pulse Ox 99% on R/A; db 12:00 BP 140 / 90; Pulse 66; Resp 17; Pulse Ox 99% on R/A; db Vitals: 08:32 Cardiac Rhythm Assessment Regular Sinus rhythm. db ED Course: 08:11 Patient arrived in ED. kb3 08:13 Frank Frazier MD is Attending Physician. rn 08:22 Kay Bustillo, DEZ is Primary Nurse. iw 08:24 Triage completed. iw 08:31 Evelin Pope, RN is Primary Nurse. db 08:31 Arm band placed on Patient placed in an exam room. db 08:31 EKG done. Initial lab(s) drawn, by ED staff, sent to lab. Inserted saline lock: 20 db gauge in right antecubital area, using aseptic technique. Blood collected. Flushed with 10 mL NS. 08:33 Patient has correct armband on for positive identification. Bed in low position. Call db light in reach. Side rails up X 1. Client placed on continuous cardiac and pulse oximetry monitoring. NIBP monitoring applied. nuclear monitoring technician on. Pulse ox on. NIBP on. Warm blanket given. Pillow given. 08:48 XRAY Chest (1 view) In Process Unspecified. EDMS 10:00 Suzy Silverio MD is Hospitalizing Provider. rn 10:04 Jack Frazier MD is Hospitalizing Provider. rn Administered Medications: 09:25 Drug: GI Cocktail without - (Maalox PO 30 ml, Lidocaine Mucous Membrane 2 % 15 db ml) PO once Route: PO; 14:38 Follow up: Response: No adverse reaction db 09:28 Drug: Famotidine IVP 20 mg IVP once; dilute with 10 mL 0.9% NaCl; give over 2 minutes db Route: IVP; Site: right antecubital; 14:38 Follow up: Response: No adverse reaction db 10:20 Drug: Aspirin PO 325 mg PO once Route: PO; db 14:38 Follow up: Response: No adverse reaction db Medication: 08:33 VIS not applicable for this client. db Outcome: 10:00 Decision to Hospitalize by Provider. rn 14:31 Patient left the ED. iw Signatures: Dispatcher [employer] EDKay Zaldivar RN RN iw Frank Frazier MD MD rn Bradberry, Kelly, RN RN kb3 Evelin Pope RN RN db
--- NOTE | 2025-08-20 10:01 | EDPHYS ---
Physician Documentation [facility] Name: Lissette Trujillo Age: 39 yrs Sex: Female : 1985 Arrival Date: 08/20/2025 Time: 08:09 Bed 14 Private MD: ED Physician Frank Frazier HPI: 08/20 08:26 This 39 yrs old Black Female presents to ER via Ambulatory with complaints of Chest rn Pain. 08:26 The patient or guardian reports chest pain that is located primarily in the substernal rn area. Onset: just prior to arrival. Associated signs and symptoms: Pertinent positives: paresthesia. 08:31 Patient reports substernal chest pain that radiates to the left arm with paresthesia. rn No nausea or vomiting. No diaphoresis. Was at rest when it happened. Pain is worsening with time. No recent trauma. No recent procedure. No history of DVT or PE. No recent illness or cough. No abdominal pain.. Historical: - Allergies: 08:24 Bactrim; iw - Home Meds: 08:24 None [Active]; iw - PMHx: 08:24 None; iw - PSHx: 08:24 None; iw - Immunization history:: Adult Immunizations not up to date. - Infectious Disease History:: Denies. - Social history:: Smoking status: Patient denies any tobacco usage or history of. - Family history:: not pertinent. - Hospitalizations: : No recent hospitalization is reported. ROS: 08:32 Constitutional: Negative for fever, chills, and weight loss, Cardiovascular: Positive rn for chest pain Respiratory: Negative for shortness of breath, cough, wheezing, and pleuritic chest pain, Abdomen/GI: Negative for abdominal pain, nausea, vomiting, diarrhea, and constipation, Back: Negative for injury and pain, : Negative for injury, bleeding, discharge, and swelling, MS/Extremity: Negative for injury and deformity, Skin: Negative for injury, rash, and discoloration, Neuro: Negative for headache, weakness, and seizure, Exam: 08:32 Constitutional: This is a well developed, well nourished patient who is awake, alert, rn and in no acute distress. Cardiovascular: Bradycardic, regular. No pulse deficits. Respiratory: No increased work of breathing, no retractions or nasal flaring. Abdomen/GI: Soft, non-tender MS/ Extremity: Pulses equal, no cyanosis. Neurovascular intact. Full, normal range of motion. Equal circumference. Neuro: Awake and alert, GCS 15 09:15 ECG was reviewed by the Attending Physician. rn Vital Signs: 08:30 BP 153 / 88; Pulse 57; Resp 18; Pulse Ox 98% on R/A; db 09:00 BP 142 / 85; Pulse 55; Resp 15; Pulse Ox 0100% ; db 10:00 BP 146 / 99; Pulse 68; Resp 16; Pulse Ox 99% on R/A; db 12:00 BP 140 / 90; Pulse 66; Resp 17; Pulse Ox 99% on R/A; db MDM: 08:13 Medical Screening Exam initiated rn 08:27 Management of patient was discussed with the following: Language Asst: Consulted Dr. akil Guerrero, cardiology, sent him ECG, states no STEMI, but will come and see patient for evaluation.. 09:58 Differential diagnosis: abnormal EKG, acute myocardial infarction, acute pericarditis, rn anxiety, chest wall pain, costochondritis, esophagitis, gastroesophageal reflux disease (GERD), pleurisy, pneumonia, pneumothorax, stable angina, unstable angina. HEART Score: History: Moderately Suspicious (1), ECG: Non specific repolarization disturbance / LBTB / PM (1), Age: < or = 45 years (0), Risk Factors: No Risk Factors Known (0), Troponin: < or = 1 x Normal Limit (0), Total Score = 2. The patient was given aspirin in the Emergency Department. 09:59 Data reviewed: vital signs, nurses notes, lab test result(s), EKG, radiologic studies, rn plain films, and as a result, I will admit patient. Management of patient was discussed with the following: Language Asst: Discussed results with Dr. Guerrero, recommends observation in the hospital for further testing.. Independent interpretation of the following test(s) in the Emergency Department EKG: See my EKG interpretation above X-Ray: My interpretation is Chest x-ray images negative for pneumothorax or pneumonia per my interpretation. barrel leveler: rate is 57 beats/min, Rhythm is regular, sinus bradycardia, with no ectopy, Interpretation: bradycardia. Care significantly affected by the following chronic conditions: Hypertension. Counseling: I had a detailed discussion with the patient and/or guardian regarding the historical points, exam findings, and any diagnostic results supporting the discharge/admit diagnosis, lab results, radiology results, the need for further work-up and treatment in the hospital. 08/20 08:18 Order name: Basic Metabolic Panel; Complete Time: 09:06 rn 08/20 08:18 Order name: CBC with Diff; Complete Time: 09:00 rn 08/20 08:18 Order name: NT PRO-BNP; Complete Time: 09:06 rn 08/20 08:18 Order name: PT-INR; Complete Time: 09:00 rn 08/20 08:18 Order name: Troponin HS; Complete Time: 09:06 rn 08/20 08:18 Order name: Test, Urine rn 08/20 08:25 Order name: Test, Serum; Complete Time: 09:14 db 08/20 08:32 Order name: LFT's rn 08/20 10:37 Order name: Troponin High Sensitivity: COLLECT \T\1300 db 08/20 14:26 Order name: Ptt, Activated db 08/20 08:18 Order name: XRAY Chest (1 view); Complete Time: 09: rn 08/20 10:54 Order name: CONS Physician Consult EDMS 08/20 08:18 Order name: Cardiac monitoring; Complete Time: 08:25 rn 08/20 08:18 Order name: EKG - Nurse/Tech; Complete Time: : rn 08/20 08:18 Order name: IV Saline Lock; Complete Time: 08:35 rn 08/20 08:18 Order name: Labs collected and sent; Complete Time: 08:35 rn 08/20 08:18 Order name: O2 Per Protocol; Complete Time: 08:35 rn 08/20 08:18 Order name: O2 Sat Monitoring; Complete Time: 08:35 rn EC:15 Rate is 51 beats/min. Rhythm is regular. QRS [place] is Normal. UT interval is normal. QT rn interval is normal. No Q waves. T waves are Normal. No ST changes noted. Clinical impression: Sinus bradycardia. Interpreted by me. Reviewed by me. Administered Medications: : Drug: GI Cocktail without - (Maalox PO 30 ml, Lidocaine Mucous Membrane 2 % 15 db ml) PO once Route: PO; 14:38 Follow up: Response: No adverse reaction db 09:28 Drug: Famotidine IVP 20 mg IVP once; dilute with 10 mL 0.9% NaCl; give over 2 minutes db Route: IVP; Site: right antecubital; 14:38 Follow up: Response: No adverse reaction db 10:20 Drug: Aspirin PO 325 mg PO once Route: PO; db 14:38 Follow up: Response: No adverse reaction db Disposition Summary: 08/20/25 10:00 Hospitalization Ordered Notes: Hospitalization Status: Observation rn Location: Telemetry/MedSurg (observation) rn Condition: Stable rn Problem: new rn Symptoms: have improved rn Bed/Room Type: Standard rn Provider: Jack Frazier(08/20/25 10:05) rn Room Assignment: [facility](08/20/25 12:29) bc6 Diagnosis - Chest pain, unspecified rn Forms: - Medication Reconciliation Form rn - SBAR form rn - Leadership Thank You Letter rn Signatures: Dispatcher [employer] EDMS Kay Bustillo RN RN iw Frank Frazier MD MD rn Benton, Danielle, RN RN db Carowatson, Breana bc6 Corrections: (The following items were deleted from the chart) 08:18 08:18 BASIC METABOLIC PANEL+C.LAB.BRZ ordered. EDTX EDMS 08:18 08:18 CBC+H.LAB.BRZ ordered. EDTX EDMS 08:18 08:18 PROBNP+C.LAB.BRZ ordered. EDTX EDMS 08:18 08:18 PROTIME (+INR)+COAG.LAB.BRZ ordered. EDTX EDMS 08:18 08:18 Troponin High Sensitivity+C.LAB.BRZ ordered. EDTX EDMS 08:18 08:18 Test, Urine+UC.LAB.BRZ ordered. EDTX EDMS 08:18 08:18 Chest Single View+RAD.RAD.BRZ ordered. EDTX EDMS 08:25 08:25 TEST, SERUM+SC.LAB.BRZ ordered. EDTX EDMS 08:33 08:32 Constitutional: Negative for fever, chills, and weight loss, Cardiovascular: rn Positive for chest pain Respiratory: Negative for shortness of breath, cough, wheezing, and pleuritic chest pain, Abdomen/GI: Negative for abdominal pain, nausea, vomiting, diarrhea, and constipation, Back: Negative for injury and pain, : Negative for injury, bleeding, discharge, and swelling, MS/Extremity: Negative for injury and deformity, Skin: Negative for injury, rash, and discoloration, Neuro: Negative for headache, weakness, numbness, tingling, and seizure, rn 10:05 10:00 Suzy Silverio rn rn 12:29 10:00 rn bc6
[2025-08-20] MEDS ORDERED: ASPIRIN 325 MG TAB ONE (10:20)
[2025-08-20 10:21] LABS: ALT/SGPT 21 U/L (13-56); AST/SGOT 12 U/L (15-37); Albumin 3.3 g/dL (3.4-5.0); Albumin/Globulin Ratio 0.7 (1.1-1.8); Alkaline Phosphatase 51 U/L (45-117); Globulin 4.5 g/dL (2.3-3.5)
[2025-08-20 10:22] LABS: Bilirubin Indirect, Calculated 0.3 mg/dL (0.2-0.8)
[2025-08-20] MEDS ORDERED: MORPHINE 4 MG/ML SYR IV PRN (10:52)
--- NOTE | 2025-08-20 11:34 | P.HP ---
Certification for Inpatient Patient admitted to: Observation With expected LOS: <2 Midnights Patient will require the following post-hospital care: None Practitioner: I am a practitioner with admitting privileges, knowledge of patient current condition, hospital course, and medical plan of care. Services: Services provided to patient in accordance with Admission requirements found in Title 42 Section 412.3 of the Code of Federal Regulations Patient History Date of Service: 08/20/25 Primary Care Provider: None Reason for admission: Chest pain ACS rule out History of Present Illness: 39-year-old female with no past medical history presents for substernal chest pain with radiation to left upper extremity, left upper extremity paresthesia and diaphoresis starting at approximately 8 AM this morning after dropping her children off at school. Endorses coming immediately to the emergency room for evaluation where chest pain began to subside approximately 30 minutes later. Denies lower extremity weakness, N/V, weakness, blurry vision, double vision, previous instances, anxiety history. ER course: Patient arrived to ED via personal vehicle. Upon arrival vital signs were taken and she was noted to be slightly hypertensive with pulse of 57, BP 153/88. Vital signs otherwise unremarkable on room air. Additionally ECG was taken. ECG was sinus rhythm with slight ST elevation in lateral leads. Laboratory workup was unremarkable including normal troponin and BNP. Chest x-ray completed with no acute abnormality. test negative patient was given GI cocktail of Maalox plus lidocaine 2% and famotidine IV 20 mg x 1 with resolution of symptoms. Cardiology was consulted for ST elevations in ECG. They recommend repeat troponin and ECG at 1300 and holding under observation status pending those results. Allergies sulfamethoxazole [From Bactrim] Allergy (Verified 11/10/12 16:23) childhood allergy trimethoprim [From Bactrim] Allergy (Verified 11/10/12 16:23) childhood allergy Home medications list reviewed: Yes (No home med) - Past Medical/Surgical History Has patient received pneumonia vaccine in the past: No Diabetic: No Past Medical History: Patient denies medical history Past Surgical History: Patient denies surgical history - Family History Family History: Reviewed- Non-Contributory - Social History Smoking Status: Never smoker Alcohol use: Yes CD- Drugs: No Caffeine use: Yes Place of Residence: Home Review of Systems 10-point ROS is otherwise unremarkable Physical Examination - Physical Exam General: Alert, In no apparent distress, Oriented x3, Cooperative HEENT: Atraumatic, Normocephalic, Mucous membr. moist/pink Neck: Supple, 2+ carotid pulse no bruit, JVD not distended, No Thyromegaly Respiratory: Clear to auscultation bilaterally, Normal air movement Cardiovascular: No edema, Normal pulses, Regular rate/rhythm, Normal S1 S2 Capillary refill: Brisk Gastrointestinal: Normal bowel sounds, Hypoactive, Non-distended Musculoskeletal: No clubbing, No swelling, No contractures Integumentary: No rashes, No breakdown, No significant lesion Neurological: Normal speech, Normal tone, Sensation intact, Cranial nerves 3-12 intact, Normal affect External genitalia: Deferred Rectal: Deferred - Studies Laboratory Data (last 24 hrs) 08/20/25 08/20/25 08/20/25 09:55 08:30 08:30 WBC 7.60 Hgb 13.7 Hct 39.7 Plt Count 334 PT 11.7 INR 1.04 Sodium Potassium BUN Creatinine Glucose Total Bilirubin 0.5 AST 12 L ALT 21 Alkaline Phosphatase 51 08/20/25 08:30 WBC Hgb Hct Plt Count PT INR Sodium 138 Potassium 3.2 L BUN 13 Creatinine 0.75 Glucose 105 Total Bilirubin AST ALT Alkaline Phosphatase Assessment and Plan - Plan Assessment: 39-year-old female with no past medical history presents for substernal chest pain with radiation to left upper extremity, left upper extremity paresthesia and diaphoresis lasting approximately 30 minutes. Admitted under observation for ACS rule out due to ST elevations on ECG. Cardiology seen and following. Plan: Chest pain ACS rule out ECG with slight ST elevations Troponin 5.8, will repeat at 1300 BNP 39 In ED given famotidine IV 20 mg plus GI cocktail with good symptom improvement Discussed with cardiology: Monitoring, repeat troponin and ECG at 1300 for reeval for discharge Aspirin 325 mg ordered once daily Monitor on telemetry Hypokalemia Potassium 3.2 Potassium 50 mill equivalents x 1 replacement PO. Dispo: Clearance from cardiology pending repeat troponin Anticipate home no need Discharge Plan: Home Plan to discharge in: 24 Hours - Advance Directives Does patient have a Living Will: No Does patient have a Durable POA for Healthcare: No - Code Status/Comfort Care Code Status Assessed: Yes (Full) Critical Care: No Time Spent Managing Pts Care (In Minutes): 49
--- NOTE | 2025-08-20 11:57 | P.CNS ---
Date of Consult: 08/20/25 Primary Care Provider: None Chief Complaint: Chest pain ACS rule out History of Present Illness: Patient with no significant PMH presented with chest pain that started today while she was dropping her kids at school, sharp, mid chest, no radiation, no other symptoms, pain is resolved at time of exam in ER, denies any cardiac history, no palpitations, no syncope. Allergies sulfamethoxazole [From Bactrim] Allergy (Verified 11/10/12 16:23) childhood allergy trimethoprim [From Bactrim] Allergy (Verified 11/10/12 16:23) childhood allergy Home medications list reviewed: Yes - Past Medical/Surgical History Diabetic: No - Social History Alcohol use: Yes CD- Drugs: No Caffeine use: Yes Place of Residence: Home Review of Systems 10-point ROS is otherwise unremarkable Physical Examination General: Alert, In no apparent distress HEENT: Atraumatic, PERRLA, Mucous membr. moist/pink, EOMI, Sclerae nonicteric Neck: Supple, 2+ carotid pulse no bruit, No LAD, Without JVD or thyroid abnormality Respiratory: Clear to auscultation bilaterally, Normal air movement Cardiovascular: Regular rate/rhythm, Normal S1 S2 Gastrointestinal: Normal bowel sounds, No tenderness Musculoskeletal: No tenderness Integumentary: No rashes Neurological: Normal gait, Normal speech, Normal tone, Normal affect Lymphatics: No axilla or inguinal lymphadenopathy Laboratory Data (last 24 hrs) 08/20/25 08/20/25 08/20/25 09:55 08:30 08:30 WBC 7.60 Hgb 13.7 Hct 39.7 Plt Count 334 PT 11.7 INR 1.04 Sodium Potassium BUN Creatinine Glucose Total Bilirubin 0.5 AST 12 L ALT 21 Alkaline Phosphatase 51 08/20/25 08:30 WBC Hgb Hct Plt Count PT INR Sodium 138 Potassium 3.2 L BUN 13 Creatinine 0.75 Glucose 105 Total Bilirubin AST ALT Alkaline Phosphatase - Problems (1) Chest pain Current Visit: Yes Status: Acute Plan: Patient is young with no risk factors for CAD, EKG with no significant ST-T wave changes. Troponin x1 is negative, get another troponin by 1 om, if negative then patient can go home and follow up with cardiology as outpatient.
[2025-08-20] MEDS: POTASSIUM 25 MEQ EFFERV TAB PO ONE (14:07)
[2025-08-20] MEDS ORDERED: POTASSIUM 25 MEQ EFFERV TAB ONE (14:14)
[2025-08-20 14:58] VITALS: BMI 25.4
[2025-08-20] MEDS: CLOPIDOGREL 75 MG TABLET PO ONE (15:06)
[2025-08-20] MEDS: HEPARIN/D5W 25,000 UNIT/500 ML BAG IV SCH (15:53)
[2025-08-21] MEDS: ASPIRIN EC 81 MG TAB PO ONE (06:14)
[2025-08-21] MEDS: ASPIRIN EC 81 MG TAB PO SCH (06:15)
[2025-08-21 06:29] LABS: Hematocrit 42.5 % (36.0-45.0); Hemoglobin 14.5 g/dL (12.0-15.0); MCH 31.4 pg (27.0-35.0); MCHC 34.1 g/dL (32.0-36.0); MCV 92.1 fL (80-100); MPV 8.0 fL (7.6-11.3); RBC Red Blood Cell Count 4.61 M/uL (3.86-4.86); White Blood Count 7.70 thou/uL (4.3-10.9)
[2025-08-21] MEDS ORDERED: LIDOCAINE 1% 20 ML MDV ONE (06:30)
[2025-08-21] MEDS ORDERED: NITROGLYCERIN/D5W 50 MG/250 ML BTL IV ONE (06:30)
[2025-08-21] MEDS ORDERED: HEPA 1000U/500MLS 2,000 UNIT/1,000 ML BAG IV ONE (06:30)
[2025-08-21] MEDS ORDERED: CLOPIDOGREL 75 MG TABLET ONE (06:31)
[2025-08-21] MEDS ORDERED: VERAPAMIL HCL 10 MG/4 ML VIAL IV ONE (06:31)
[2025-08-21] MEDS ORDERED: ATROPINE SULF 1 MG/10 ML SYR IV ONE (06:31)
[2025-08-21] MEDS ORDERED: TICAGRELOR 90 MG TABLET PO ONE (06:31)
[2025-08-21] MEDS ORDERED: HEPARIN 10,000 UNIT/10 ML VIAL IV ONE (06:32)
[2025-08-21] MEDS ORDERED: HEPARIN 5000 UNIT/ML 1 ML VIAL ONE (06:32)
[2025-08-21] MEDS: NA CHLORIDE 0.9% 500 ML ONE (06:45)
[2025-08-21 06:48] LABS: Anion Gap 7.6 mEq/L (5.0-15.0); BUN Blood Urea Nitrogen 14.0 mg/dL (7-18); Glucose Level 93.0 mg/dL (74-106); Potassium 3.6 mEq/L (3.5-5.1)
[2025-08-21 06:50] LABS: Troponin High Sensitivity 5832.6 pg/mL (<58.9)
[2025-08-21] MEDS: FENTANYL CITR 100 MCG/2 ML ONE (06:54)
[2025-08-21] MEDS: MIDAZOLAM HCL 2 MG/2 ML INJ ONE (06:55)
[2025-08-21] MEDS ORDERED: ASPIRIN 325 MG TAB PO SCH (09:00)
[2025-08-21] MEDS: ACETAMINOPHEN 500 MG TAB PO PRN (10:14)
--- NOTE | 2025-08-21 11:27 | P.DS ---
Admission Date: 08/20/25 Discharge Date: 08/21/25 Primary Care Provider: None Disposition: ROUTINE DISCHARGE Discharge Condition: GOOD Reason for Admission: Chest pain ACS rule out Consultations: Cardiology Procedures: Cardiac catheterization 08/21/2025 Brief History of Present Illness: 39-year-old female with no past medical history presents for substernal chest pain with radiation to left upper extremity, left upper extremity paresthesia and diaphoresis starting at approximately 8 AM this morning after dropping her children off at school. Endorses coming immediately to the emergency room for evaluation where chest pain began to subside approximately 30 minutes later. Denies lower extremity weakness, N/V, weakness, blurry vision, double vision, previous instances, anxiety history. Hospital Course: Chest pain ACS rule out NSTEMI Takotsubo versus Myocarditis The patient arrived to the ED via personal vehicle. Upon arrival, vital signs were taken and she was noted to be slightly hypertensive with pulse of 57 and a BP of 153/88. Vital signs otherwise unremarkable on room air. Additionally, an ECG was taken. The ECG was sinus rhythm with slight ST elevations in lateral leads. The laboratory workup was unremarkable including normal troponin (5.8) and BNP (39). A chest x-ray completed with no acute abnormality. A test was completed and negative. The patient was given a GI cocktail of Maalox plus lidocaine 2% and famotidine IV 20 mg x 1 with complete resolution of her symptoms. Cardiology was consulted for ST elevations in ECG. They recommended a repeat troponin and ECG at 1300 and holding her under observation status pending those results. The subsequent troponin trend was 424, 3455, peaking at 5832, downtrending at 3482. At this point, she was placed on a heparin drip. She was also given aspirin and Plavix and monitored on telemetry. Patient underwent a right heart cath procedure with Dr. Alarcon on 08/21 which was nonconcerning. Due to the negative RHC, a CT chest angio was completed which was negative for pulmonary embolism. It was noted though that she had a 4 cm aortic root aneurysm versus dilation. A TTE was completed as well after the RHC to assess for Takotsubo versus myocarditis as the etiology of the elevated troponin. Cardiology reviewed the TTE and found... Hypokalemia Patient was noted to be mildly hypokalemic on admission with a potassium of 3.2. She was repleted with 50 mill equivalents p.o. formulary and is maintained within normal limits for the remainder of the visit. Vital Signs/Physical Exam: Temp Pulse Resp BP Pulse Ox 98.5 F 65 17 125/66 100 08/21/25 10:00 08/21/25 10:00 08/21/25 10:00 08/21/25 10:00 08/21/25 10:00 General: Alert, In no apparent distress, Oriented x3, Cooperative HEENT: Atraumatic, Normocephalic, Mucous membr. moist/pink Neck: Supple, 2+ carotid pulse no bruit, JVD not distended, No Thyromegaly, No LAD Respiratory: Clear to auscultation bilaterally, Normal air movement Cardiovascular: No edema, Normal pulses, Regular rate/rhythm, Normal S1 S2 Capillary refill: Brisk Gastrointestinal: Normal bowel sounds, Soft and benign, Non-distended, W/out hepatosplenomegaly Musculoskeletal: No clubbing, No swelling, No contractures, No erythema Integumentary: No rashes, No breakdown, No significant lesion, No tenderness/swelling Neurological: Normal speech, Normal strength at 5/5 x4 extr, Normal tone, Sensation intact, Cranial nerves 3-12 intact, Normal affect External genitalia: Deferred Rectal: Deferred Laboratory Data at Discharge: WBC 7.70 thou/uL (4.3-10.9) 08/21/25 06:20 Hgb 14.5 g/dL (12.0-15.0) 08/21/25 06:20 Hct 42.5 % (36.0-45.0) 08/21/25 06:20 Plt Count 322 thou/uL (152-406) 08/21/25 06:20 PT 11.7 SECONDS (10-13.0) 08/20/25 08:30 INR 1.04 08/20/25 08:30 APTT 43.9 SECONDS (27.2-37.4) H 08/21/25 05:31 Sodium 139 mEq/L (136-145) 08/21/25 06:20 Potassium 3.6 mEq/L (3.5-5.1) 08/21/25 06:20 BUN 14 mg/dL (7-18) 08/21/25 06:20 Creatinine 0.74 mg/dL (0.55-1.02) 08/21/25 06:20 Glucose 93 mg/dL (74-106) 08/21/25 06:20 Total Bilirubin 0.5 mg/dL (0.2-1.0) 08/20/25 09:55 AST 12 U/L (15-37) L 08/20/25 09:55 ALT 21 U/L (13-56) 08/20/25 09:55 Alkaline Phosphatase 51 U/L (45-117) 08/20/25 09:55 Home Medications: NK [No Home Meds] 08/20/25 Physician Discharge Instructions: PROBLEM: Chest Pain, aortic root aneurysm 4 cm GOAL: PCP and Cardiology follow up, remain without further chest pain INSTRUCTIONS: Follow-up with your PCP in the next 2 to 3 days. Follow up with [facility] in the next 1 to 2 weeks. They will be able to evaluate reviewed the results of your cardiac catheterization as well as echocardiogram that you completed while inpatient. Diet: Heart healthy, low-sodium Activity: Resume normal activities as tolerated Diet: AHA Activity: Ad rich Followup: Chetan Alarcon MD [ACTIVE - CAN ADMIT] - 1-2 Weeks Keegan Trujillo MD [Primary Care Provider] - 2-3 Days Time spent managing pt's care (in minutes): 48
--- NOTE | 2025-08-21 14:12 | RAD REPORT ---
EXAMINATION: CTA CHEST PE CLINICAL INDICATION: Chest pain TECHNIQUE: 100 cc 370 Isovue administered intravenously. This examination was performed according to an angiographic protocol with 3D post-processing. This involves 3D reconstructions, MIPs, volume rendered images and/or shaded surface rendering. One or more of the following dose reduction techniqu es were used: Automated exposure control, adjustment of the mA and/or kV according to patient size, and/or iterative reconstruction. Unless otherwise specified, incidental findings do not require dedic ated imaging follow-up. [id number]. COMPARISON: No prior exam. FINDINGS: A pulmonary embolus is not seen. 4 cm aneurysm aortic root No pleural effusion. No pericardial effusion. Lungs are clear. IMPRESSION: No evidence of a pulmonary embolism 4 cm aneurysm aortic root
--- NOTE | 2025-08-21 16:03 | OP ---
Date of Procedure: 08/21/2025 Surgeon: MICHAEL SABA Procedures Performed: 1. Selective coronary angiogram. 2. Left heart catheterization. Indication: [id number] myocardial infarction. Access: Right radial artery 6-[place] closed with TR band. Complications: None. Bleeding: Less than 50 mL. Sedation: None. Description Of Procedure: After risks, benefits, and alternatives were explained, the patient agreed to procedure and signed informed consent. The patient was brought into cardiac catheterization [facility], prepped and draped in usual sterile fashion. Then, I accessed the right radial artery using pediatric micropuncture kit, ultrasound guidance, and fluoroscopy, placed 6-[place] slender sheath and took 5-[place] Scott 4.0 catheter over a J-wire into the aortic root across the aortic valve, measure d the LVEDP, and pullback did not record any gradient. Then, I engaged the RCA, took standard views, and then in the left main, took standard views, and then I removed the catheter and the sheath and p laced TR band with good hemostasis. Findings: 1. Left main; large and normal. 2. LAD; large and normal, normal diagonal branches. 3. Left circumflex; normal, moderate size, and normal OM branches. 4. RCA; large and dominant and normal. 5. LVEDP is normal at 10 mmHg. Conclusion: Normal coronary arteries with borderline LVEDP. Recommendation: Obtain an echo to rule out takotsubo versus myocarditis. SR/MODL Voice ID: [id number] Report ID: [id number]
--- NOTE | 2025-08-21 17:37 | P.PN ---
Subjective Date of Service: 08/21/25 Primary Care Provider: None Chief Complaint: Chest pain ACS rule out Subjective: Improving Patient denies acute complaints. Further history after negative TTE reveals patient had minor leg cramping. She cannot recall which leg or vomiting days ago. Denies any recent travel, long car trips or airplane rides, periods of mobility. Denies weakness, palpitations, chest pain, shortness of breath, N/V, fatigue. Review of Systems 10-point ROS is otherwise unremarkable Physical Examination - Vital Signs Temperature: 98.5 F Blood Pressure: 131/64 Pulse: 69 Respirations: 18 Pulse Ox (%): 100 - Physical Exam General: Alert, Oriented x3, Cooperative HEENT: Atraumatic, Normocephalic, Mucous membr. moist/pink Neck: 2+ carotid pulse no bruit, JVD not distended, No Thyromegaly Respiratory: Clear to auscultation bilaterally, Normal air movement Cardiovascular: Normal pulses, Regular rate/rhythm, Normal S1 S2, No gallops, No rubs, No murmurs Capillary refill: Brisk Gastrointestinal: Normal bowel sounds, Soft and benign, Non-distended, W/out hepatosplenomegaly Musculoskeletal: No clubbing, No swelling, No contractures Integumentary: No rashes, No breakdown, No significant lesion Neurological: Normal speech, Normal strength at 5/5 x4 extr, Normal tone, Sensation intact, Cranial nerves 3-12 intact, Normal affect External genitalia: Deferred Rectal: Deferred - Studies Medications List Reviewed: No Assessment And Plan - Plan Assessment: 39-year-old female with no past medical history presents for substernal chest pain with radiation to left upper extremity, left upper extremity paresthesia and diaphoresis lasting approximately 30 minutes. Admitted under observation for ACS rule out due to ST elevations on ECG. Cardiology seen and following. Plan: Chest pain, resolved NSTEMI Takotsubo versus Myocarditis The patient arrived to the ED via personal vehicle. Upon arrival, vital signs were taken and she was noted to be slightly hypertensive with pulse of 57 and a BP of 153/88. Vital signs otherwise unremarkable on room air. Additionally, an ECG was taken. The ECG was sinus rhythm with slight ST elevations in lateral leads. The laboratory workup was unremarkable including normal troponin (5.8) and BNP (39). A chest x-ray completed with no acute abnormality. A test was completed and negative. The patient was given a GI cocktail of Maalox plus lidocaine 2% and famotidine IV 20 mg x 1 with complete resolution of her symptoms. Cardiology was consulted for ST elevations in ECG. They recommended a repeat troponin and ECG at 1300 and holding her under observation status p ending those results. The subsequent troponin trend was 424, 3455, peaking at 5832, downtrending at 3482. At this point, she was placed on a heparin drip. She was also given aspirin and Plavix and monitored on telemetry. Patient underwent a right heart cath procedure with Dr. Alarcon on 08/21 which was nonconcerning. Due to the negative RHC, a CT chest angio was completed which was negative for pulmonary embolism. It was noted though that she had a 4 cm aortic root aneurysm versus dilation. A TTE was completed as well after the RHC to assess for Takotsubo versus myocarditis as the etiology of the elevated troponin. Cardiology reviewed the TTE discussed with freight claim investigator, no acute concern and recommends checking inflammatory markers to assess for myocarditis. CRP ordered. Hypokalemia, resolved Patient was noted to be mildly hypokalemic on admission with a potassium of 3.2. She was repleted with 50 mill equivalents p.o. formulary and is maintained within normal limits for the remainder of the visit. Dispo: Clearance from cardiology pending repeat CRP Anticipate home no need Discharge Plan: Home Plan to discharge in: 24 Hours - Code Status/Comfort Care Code Status Assessed: No Critical Care: No
[2025-08-22 01:35] VITALS: O2SAT 99
[2025-08-22 08:36] VITALS: BP 108/58; TEMP 98.2
--- NOTE | 2025-08-22 10:09 | P.DS ---
Admission Date: 08/21/25 Discharge Date: 08/22/25 Primary Care Provider: None Disposition: ROUTINE DISCHARGE Discharge Condition: GOOD Reason for Admission: Chest pain ACS rule out Consultations: Cardiology Procedures: Right heart cath 08/21 Brief History of Present Illness: 39-year-old female with no past medical history presents for substernal chest pain with radiation to left upper extremity, left upper extremity paresthesia and diaphoresis lasting approximately 30 minutes. Admitted under observation for ACS rule out due to ST elevations on ECG. Cardiology seen and following. Hospital Course: Chest pain, resolved NSTEMI, resolved Takotsubo likely The patient arrived to the ED via personal vehicle. Upon arrival, vital signs were taken and she was noted to be slightly hypertensive with pulse of 57 and a BP of 153/88. Vital signs otherwise unremarkable on room air. Additionally, an ECG was taken. The ECG was sinus rhythm with slight ST elevations in lateral leads. The laboratory workup was unremarkable including normal troponin (5.8) and BNP (39). A chest x-ray completed with no acute abnormality. A test was completed and negative. The patient was given a GI cocktail of Maalox plus lidocaine 2% and famotidine IV 20 mg x 1 with complete resolution of her symptoms. Cardiology was consulted for ST elevations in ECG. They recommended a repeat troponin and ECG at 1300 and holding her under observation status pending those results. The subsequent troponin trend was 424, 3455, peaking at 5832, downtrending at 3482. At this point, she was placed on a heparin drip. She was also given aspirin and Plavix and monitored on telemetry. Patient underwent a right heart cath procedure with Dr. Alarcon on 08/21 which was nonconcerning. Due to the negative RHC, a CT chest angio was completed which was negative for pulmonary embolism. It was noted though that she had a 4 cm aortic root aneurysm versus dilation. A TTE was completed as well after the RHC to assess for Takotsubo versus myocarditis as the etiology of the elevated troponin. Cardiology reviewed the TTE discussed with facs teacher, no acute concern and recommends checking inflammatory markers to assess for myocarditis, which were negative. Patient has been instructed to follow-up with cardiology a nd her PCP,, avoid strenuous exercise, heavy alcohol consumption, maintain a blood pressure log to bring to her follow-up appointments. Hypokalemia, resolved Patient was noted to be mildly hypokalemic on admission with a potassium of 3.2. She was repleted with 50 mill equivalents p.o. formulary and is maintained within normal limits for the remainder of the visit. Vital Signs/Physical Exam: Temp Pulse Resp BP Pulse Ox 98.2 F 71 18 108/58 L 98 08/22/25 08:00 08/22/25 08:00 08/22/25 08:00 08/22/25 09:00 08/22/25 08:00 General: Alert, In no apparent distress, Oriented x3 HEENT: Atraumatic, Normocephalic Neck: Supple, 2+ carotid pulse no bruit Respiratory: Clear to auscultation bilaterally, Normal air movement Cardiovascular: No edema, Regular rate/rhythm, Normal S1 S2 Capillary refill: Brisk Gastrointestinal: Normal bowel sounds, Soft and benign, Non-distended Musculoskeletal: No clubbing, No swelling, No contractures Integumentary: No rashes, No breakdown, No significant lesion Neurological: Normal speech, Normal strength at 5/5 x4 extr, Normal tone, Sensation intact, Cranial nerves 3-12 intact, Normal affect External genitalia: Deferred Rectal: Deferred Laboratory Data at Discharge: WBC 7.70 thou/uL (4.3-10.9) 08/21/25 06:20 Hgb 14.5 g/dL (12.0-15.0) 08/21/25 06:20 Hct 42.5 % (36.0-45.0) 08/21/25 06:20 Plt Count 322 thou/uL (152-406) 08/21/25 06:20 PT 11.7 SECONDS (10-13.0) 08/20/25 08:30 INR 1.04 08/20/25 08:30 APTT 43.9 SECONDS (27.2-37.4) H 08/21/25 05:31 Sodium 139 mEq/L (136-145) 08/21/25 06:20 Potassium 3.6 mEq/L (3.5-5.1) 08/21/25 06:20 BUN 14 mg/dL (7-18) 08/21/25 06:20 Creatinine 0.74 mg/dL (0.55-1.02) 08/21/25 06:20 Glucose 93 mg/dL (74-106) 08/21/25 06:20 Total Bilirubin 0.5 mg/dL (0.2-1.0) 08/20/25 09:55 AST 12 U/L (15-37) L 08/20/25 09:55 ALT 21 U/L (13-56) 08/20/25 09:55 Alkaline Phosphatase 51 U/L (45-117) 08/20/25 09:55 Home Medications: NK [No Home Meds] 08/20/25 Physician Discharge Instructions: PROBLEM: Chest Pain, aortic root aneurysm 4 cm GOAL: PCP and Cardiology follow up, remain without further chest pain INSTRUCTIONS: Follow-up with your PCP in the next 2 to 3 days. Follow up with [facility] in the next 1 to 2 weeks. They will be able to evaluate reviewed the results of your cardiac catheterization as well as echocardiogram that you completed while inpatient. Diet: Heart healthy, low-sodium Activity: Resume normal activities as tolerated Diet: AHA Activity: Ad rich Followup: Chetan Alarcon MD [ACTIVE - CAN ADMIT] - 1-2 Weeks Keegan Trujillo MD [Primary Care Provider] - 2-3 Days Time spent managing pt's care (in minutes): 33
== END 2025-08-22 11:30 | disposition home or self-care (01) | DRG 281 ==
LOC: ER 08:09 → ERHOLD 10:51 → 4TH 13:04 → OBSVTOIN 08-21 18:03
PROVIDERS: ADMIT Hospitalist; ATTEND Hospitalist
PROC: 4A023N7 Measurement of Cardiac Sampling and Pressure, Left Heart, Percutaneous Approach (ICD-10-PCS; principal; 2025-08-21)
PROC: B2111ZZ Fluoroscopy of Multiple Coronary Arteries using Low Osmolar Contrast (ICD-10-PCS; 2025-08-21)
DX: I21.4 Non-ST elevation (NSTEMI) myocardial infarction (principal); I51.81 Takotsubo syndrome; Q25.43 Congenital aneurysm of aorta; E87.6 Hypokalemia; I10 Essential (primary) hypertension; Z88.1 Allergy status to other antibiotic agents; I51.4 Myocarditis, unspecified
CPT/HCPCS: 36415; 71045; 71275; 76937; 80048; 80076; 83880; 84132; 84484; 84703; 85025; 85027; 85610; 85730; 86140; 93005; 93306; 93458; 94760; 96374; 99285; C1893; G0378; J0461; J1644; J2003; J2250; J3010; J7040; Q9966; Q9967